=== PATIENT | female | born 1965 | race Caucasian/White ===

== ENCOUNTER → 2019-07-26 | Outpatient (CLI) | payer MEDICAID, SELFPAY ==
[2019-07-26 15:44] LABS: Absolute Lymphocyte Count 2.14 X10^3/uL (0.83-4.51); Basophil# 0.07 X10^3/uL; Basophil% 0.8 % (0-1); Eosinophil# 0.27 X10^3/uL; Hematocrit 45.7 % (37-47); Hemoglobin 14.9 g/dL (12.0-15.0); Lymphocyte # 2.14 X10^3/ul (4.0); Lymphocyte % 23.6 % (19-41); Mean Corp Hgb Conc 32.6 g/dL (32-36); Mean Corpuscular Hgb 30.5 pg (27.0-32.0); Mean Corpuscular Volume 93.6 fL (81-99); Mean Platelet Vol. 12.5 fl (6.2-12.0); Monocyte# 0.59 X10^3/uL; Monocyte% 6.5 % (0-10); NRBC Flagged by Analyzer 0 % (0-5); Neutrophil # 5.97 X10^3/uL (2.7-7.7); Platelet Count 149 K/mm3 (150-450); RBC Distribution Width CV 12.5 % (11.6-14.6); RBC Distribution Width SD 43.1 fl (35.1-43.9); Red Blood Count 4.88 M/mm3 (4.2-5.4); White Blood Count 9.1 K/mm3 (4.4-11.0)
[2019-07-26 16:12] LABS: AST(SGOT) 21 U/L (15-37); Alanine Aminotransfer ALT/SGPT 22 U/L (13-56); Albumin, Serum 4.2 g/dL (3.2-5.0); Alkaline Phosphatase 74 U/L (45-117); Anion Gap 8 (5-15); BUN 13 mg/dL (7-18); BUN/Creat Ratio 19.6 RATIO (10-20); Bilirubin, Direct 0.13 mg/dL (0.00-0.30); Chloride 107 mmol/L (98-107); Creatinine, Serum 0.66 mg/dL (0.55-1.02); EST Glomerular Filtration Rate 98 mL/min (>60); Est Glom Filt Rate - Afr Amer 119 mL/min (>60); Globulin 3.6 g/dL (2.2-4.2); Glucose 86 mg/dL (74-106); Potassium 3.6 mmol/L (3.5-5.1); Protein, Total 7.8 g/dL (6.4-8.2); Sodium Level 141 mmol/L (136-145)
[2019-07-28 20:07] LABS: QNTFERON TB Mitogen Value > 10.00 IU/mL (.); QNTFERON TB Nil Value 0.03 IU/mL (.); QNTFERON TB1+ Ag Value 0.05 IU/mL (.); QNTFERON TB2+ Ag Value 0.07 IU/mL (.)
[2019-07-29 11:28] LABS: QNTIFERON TB Positive Criteria Negative (Negative)
== END | disposition home or self-care (01) ==
LOC: MTLAB 12:02
PROVIDERS: Referring Provider Physician Assistant; Visit Provider Physician Assistant
DX: L40.0 Psoriasis vulgaris (principal); Z79.899 Other long term (current) drug therapy
CPT/HCPCS: 36415; 80048; 80076; 85025; 86480

== ENCOUNTER → 2021-11-22 | Outpatient (CLI) | payer MEDICAID, SELFPAY ==
[2021-11-22 09:12] LABS: Mucous, Urine 0 SEEN /hpf (<or=2+); Red Blood Cells-Urine 0 SEEN /hpf (0-5)
[2021-11-22 10:10] LABS: Absolute Lymphocyte Count 1.92 X10^3/uL (0.83-4.51); Absolute Neutrophil Count 4.8 X10^3/uL (2.0-7.7); Basophil# 0.12 X10^3/uL; Basophil% 1.6 % (0-1); Eosinophil# 0.27 X10^3/uL; Eosinophils% 3.5 % (0-5); Hematocrit 50.7 % (37-47); Hemoglobin 16.8 g/dL (12.0-15.0); Lymphocyte # 1.92 X10^3/ul (0.83-4.51); Mean Corp Hgb Conc 33.1 g/dL (32-36); Mean Corpuscular Hgb 31.5 pg (27.0-32.0); Mean Corpuscular Volume 94.9 fL (81-99); Mean Platelet Vol. 11.2 fl (6.2-12.0); Monocyte# 0.55 X10^3/uL; Monocyte% 7.2 % (0-10); NRBC Flagged by Analyzer 0 % (0-5); Neutrophil % 62.6 % (47-70); Platelet Count 230 K/mm3 (150-450); RBC Distribution Width CV 12.9 % (11.6-14.6); RBC Distribution Width SD 44.9 fl (35.1-43.9); Red Blood Count 5.34 M/mm3 (4.2-5.4); White Blood Count 7.7 K/mm3 (4.4-11.0)
[2021-11-22 10:15] LABS: Color, Urine Yellow (Yellow); Glucose, Dipstick Normal (Normal); Ketone-Dipstick 5 mg/dl (Negative); Leukocyte Esterase-Dipstick 500 /ul (Negative); Nitrite-Dipstick Negative (Negative); Occult Blood-Urine Negative /ul (Negative); Protein-Dipstick Negative (Negative); Specific Gravity, Urine 1.025 (1.002-1.030); Urine Bilirubin Dipstick Negative (Negative); Urine Clarity Clear (Clear); Urine Urobilinogen Normal (Normal)
[2021-11-22 10:32] LABS: White Blood Cells 10-25 SEEN /hpf (0-5)
[2021-11-22 10:33] LABS: Bacteria 1+ /hpf (None Seen); Squamous Epithelial Cells - UA 0-5 SEEN /hpf (5-10)
[2021-11-22 10:42] LABS: AST(SGOT) 21 U/L (15-37); Alanine Aminotransfer ALT/SGPT 21 U/L (13-56); Albumin, Serum 4.1 g/dL (3.2-5.0); Alkaline Phosphatase 84 U/L (45-117); Anion Gap 4 (5-15); BUN 11 mg/dL (7-18); Calcium,Total 9.5 mg/dL (8.5-10.1); Chloride 108 mmol/L (98-107); Creatinine, Serum 0.84 mg/dL (0.55-1.02); EST Glomerular Filtration Rate 73 mL/min (>60); Est Glom Filt Rate - Afr Amer 89 mL/min (>60); Globulin 4.1 g/dL (2.2-4.2); Glucose 95 mg/dL (74-106); Potassium 4.1 mmol/L (3.5-5.1); Protein, Total 8.2 g/dL (6.4-8.2); Sodium Level 136 mmol/L (136-145)
[2021-11-22 11:20] LABS: Hepatitis B Surface Antibody Non-Reactive; Hepatitis B Surface Antigen Non-Reactive (Nonreactive); Hepatitis C Antibody Non-Reactive (Nonreactive)
[2021-11-23 10:07] LABS: Ferritin 197 ng/mL (8-252); Iron 88 ug/dL (50-170); Iron Binding Capacity,Total 375 ug/dL (250-450); PERCENT IRON SATURATION 23.5 % (15.0-55.0)
[2021-11-24 08:23] LABS: Transferrin 287 mg/dL (192-364)
== END | disposition home or self-care (01) ==
LOC: MFPLAB 09:09
PROVIDERS: PCP Family Medicine; Referring Provider Family Medicine; Visit Provider Family Medicine
DX: N39.0 Urinary tract infection, site not specified (principal); D75.1 Secondary polycythemia
CPT/HCPCS: 36415; 80053; 81001; 82728; 83540; 83550; 84466; 85025; 86706; 86803; 87086; 87340

== ENCOUNTER → 2021-12-27 | Outpatient (CLI) | payer MEDICAID, SELFPAY ==
[2021-12-27 17:46] LABS: Hematocrit 49.2 % (37-47); Hemoglobin 16.3 g/dL (12.0-15.0); Mean Corp Hgb Conc 33.1 g/dL (32-36); Mean Corpuscular Hgb 31.3 pg (27.0-32.0); Mean Corpuscular Volume 94.6 fL (81-99); Mean Platelet Vol. 11.8 fl (6.2-12.0); Platelet Count 221 K/mm3 (150-450); RBC Distribution Width SD 45.7 fl (35.1-43.9); White Blood Count 9.2 K/mm3 (4.4-11.0)
[2021-12-27 17:55] LABS: ALB/GLOB Ratio 0.9 RATIO (0.9-2.4); AST(SGOT) 19 U/L (15-37); Alanine Aminotransfer ALT/SGPT 27 U/L (13-56); Albumin, Serum 3.8 g/dL (3.2-5.0); Alkaline Phosphatase 89 U/L (45-117); Anion Gap 7 (5-15); BUN 12 mg/dL (7-18); BUN/Creat Ratio 14.5 RATIO (10-20); Chloride 109 mmol/L (98-107); Creatinine, Serum 0.83 mg/dL (0.55-1.02); EST Glomerular Filtration Rate 75 mL/min (>60); Est Glom Filt Rate - Afr Amer 91 mL/min (>60); Globulin 4.1 g/dL (2.2-4.2); Glucose 83 mg/dL (74-106); Protein, Total 7.9 g/dL (6.4-8.2); Sodium Level 140 mmol/L (136-145)
[2021-12-27 18:36] LABS: HIV - WCH Non-Reactive (Nonreactive); Hepatitis B Surface Antigen Non-Reactive (Nonreactive); Hepatitis C Antibody Non-Reactive (Nonreactive)
[2022-01-01 19:07] LABS: QNTFERON TB Mitogen Value > 10.00 IU/mL (.); QNTFERON TB Nil Value 0 IU/mL (.); QNTFERON TB1+ Ag Value 0.04 IU/mL (.); QNTFERON TB2+ Ag Value 0.03 IU/mL (.)
[2022-01-02 08:06] LABS: Hepatitis B Core Ab Total Negative (Negative); QNTIFERON TB Positive Criteria Negative (Negative)
== END | disposition home or self-care (01) ==
PROVIDERS: PCP Family Medicine; Referring Provider Family Medicine
DX: Z79.899 Other long term (current) drug therapy (principal)
CPT/HCPCS: 36415; 80053; 85027; 86480; 86703; 86704; 86803; 87340

== ENCOUNTER → 2022-01-05 | Outpatient (CLI) | payer MEDICAID, SELFPAY ==
--- NOTE | 2022-01-05 08:57 | CT_ITS ---
STUDY: LOW DOSE CT LUNG CANCER SCREENING REASON FOR EXAM: Female, 56 years old. 1 pack per day smoker x44 years RADIATION DOSAGE (If Supplied By Facility): CTDIvol = ( 2.01 ) mGy, DLP = ( 67.71 ) mGycm TECHNIQUE: No contrast was administered. Low dose technique was utilized (average mAS-38 and kVp 120). 1.25 mm axial source images with a slice interval of 1.25-mm were reconstructed in lung windows. 2.5 mm axial source images with a slice interval of 2.5-mm were reconstructed in lung windows. 5.0 mm axial source images with a slice interval of 5.0-mm were reconstructed in soft tissue windows. COMPARISON: None. FINDINGS: Lung windows show the lungs to be normally expanded. No organized infiltrate. No suspicious noncalcified mass or nodule. No groundglass opacifications or small airways inflammation. There is evidence of pericardial thickening consistent with chronic bronchitis. Soft tissue windows show normal-appearing thyroid gland. No suspicious axillary, mediastinal, or perihilar adenopathy. No thoracic aortic aneurysm. There are calcified coronary vessels. Bony structures show degenerative change. Limited cuts through the upper abdomen do not show a suspicious abnormality. CT/Low Dose CT Lung Screening IMPRESSION: Lung-RADS category 2 - Continue annual screening with LDCT in 12 months. IMPORTANT NOTES FOR USE: ACR Lung-RADS Version 1.1 Assessment Categories Release Date: 2018 Category: Coded 0-4 bases on nodule(s) with highest degree of suspicion. Negative screen is defined as categories 1 and 2; a positive screen is defined as categories 3 and 4. Category 3 and 4A nodules that are unchanged on interval CT should be coded as category 2, and individuals returned to screening in 12 months. Category 4X: Category 3 or 4 nodules with additional imaging findings that increase the suspicion of lung cancer, such as spiculation, GGN that doubles in size in 1 year, enlarged lymph notes, etc. Category Modifiers: S (significant finding unrelated to lung cancer) Electronically Signed: Marck Marr MD at 9:39 EDT ,
== END | disposition home or self-care (01) ==
LOC: CT 08:54
PROVIDERS: PCP Family Medicine; Referring Provider Family Medicine; Visit Provider Family Medicine
DX: F17.210 Nicotine dependence, cigarettes, uncomplicated (principal)
CPT/HCPCS: 71271

== ENCOUNTER → 2023-01-17 | Outpatient (CLI) | payer MEDICAID, SELFPAY ==
[2023-01-17 10:39] LABS: Bacteria 0 SEEN /hpf (None Seen); Mucous, Urine 0 SEEN /hpf (<or=2+); Red Blood Cells-Urine 0 SEEN /hpf (0-5); White Blood Cells 0 SEEN /hpf (0-5)
[2023-01-17 12:21] LABS: Absolute Lymphocyte Count 2.59 X10^3/uL (0.83-4.51); Absolute Neutrophil Count 4.2 X10^3/uL (2.0-7.7); Basophil# 0.11 X10^3/uL; Basophil% 1.4 % (0-1); Eosinophil# 0.26 X10^3/uL; Eosinophils% 3.4 % (0-5); Hematocrit 47.9 % (37-47); Hemoglobin 15.8 g/dL (12.0-15.0); Lymphocyte # 2.59 X10^3/ul (0.83-4.51); Lymphocyte % 33.7 % (19-41); Mean Corpuscular Volume 93.9 fL (81-99); Mean Platelet Vol. 10.8 fl (6.2-12.0); Monocyte# 0.51 X10^3/uL; Monocyte% 6.6 % (0-10); NRBC Flagged by Analyzer 0 % (0-5); Neutrophil # 4.19 X10^3/uL (2.7-7.7); Neutrophil % 54.5 % (47-70); Platelet Count 252 K/mm3 (150-450); RBC Distribution Width CV 12.5 % (11.6-14.6); RBC Distribution Width SD 43.5 fl (35.1-43.9); White Blood Count 7.7 K/mm3 (4.4-11.0)
[2023-01-17 12:24] LABS: Color, Urine Yellow (Yellow); Glucose, Dipstick Normal (Normal); Ketone-Dipstick 5 mg/dl (Negative); Leukocyte Esterase-Dipstick Negative /ul (Negative); Nitrite-Dipstick Negative (Negative); Occult Blood-Urine 10 /ul (Negative); Protein-Dipstick Negative (Negative); Urine Bilirubin Dipstick Negative (Negative); Urine Clarity Clear (Clear); Urine Urobilinogen Normal (Normal)
[2023-01-17 12:41] LABS: Squamous Epithelial Cells - UA 0-5 SEEN /hpf (5-10)
[2023-01-17 12:53] LABS: AST(SGOT) 15 U/L (15-37); Alanine Aminotransfer ALT/SGPT 22 U/L (13-56); Albumin, Serum 3.9 g/dL (3.2-5.0); Alkaline Phosphatase 89 U/L (45-117); Anion Gap 5 (5-15); BUN 9 mg/dL (7-18); BUN/Creat Ratio 12.4 RATIO (10-20); Calcium,Total 9.1 mg/dL (8.5-10.1); Chloride 112 mmol/L (98-107); Cholesterol 268 mg/dL (200); Creatinine, Serum 0.72 mg/dL (0.55-1.02); EST Glomerular Filtration Rate 87 mL/min (>60); Est Glom Filt Rate - Afr Amer 106 mL/min (>60); Glucose 87 mg/dL (74-106); High Density Lipoprotein 77 mg/dL; Potassium 4.1 mmol/L (3.5-5.1); Protein, Total 7.9 g/dL (6.4-8.2); Sodium Level 140 mmol/L (136-145); Thyroid Stim Hormone (TSH) 1.11 uIU/mL (0.358-3.74); Triglycerides 127 mg/dL; Very Low Density Lipoprotein 25 mg/dL (5-40)
[2023-01-22 09:52] LABS: Ferritin 271 ng/mL (8-252); Iron 127 ug/dL (50-170); Iron Binding Capacity,Total 349 ug/dL (250-450); PERCENT IRON SATURATION 36.4 % (15.0-55.0)
[2023-01-23 04:07] LABS: Transferrin 270 mg/dL (192-364)
== END | disposition home or self-care (01) ==
PROVIDERS: PCP Family Medicine; Visit Provider Family Medicine
DX: Z00.00 Encounter for general adult medical examination without abnormal findings (principal); D75.1 Secondary polycythemia; F17.200 Nicotine dependence, unspecified, uncomplicated
CPT/HCPCS: 36415; 80053; 80061; 81001; 82728; 83540; 83550; 84443; 84466; 85025

== ENCOUNTER → 2023-02-27 | Outpatient (CLI) | payer MEDICAID, SELFPAY ==
--- NOTE | 2023-02-27 17:48 | CT_ITS ---
STUDY: LOW DOSE CT LUNG CANCER SCREENING REASON FOR EXAM: Female, 58 years old. One pack per day smoker x45 year RADIATION DOSAGE (If Supplied By Facility): CTDIvol = ( 2.01 ) mGy, DLP = ( 69.97 ) mGycm TECHNIQUE: No contrast was administered. Low dose technique was utilized (average mAS-38 and kVp 120). 1.25 mm axial source images with a slice interval of 1.25-mm were reconstructed in lung windows. 2.5 mm axial source images with a slice interval of 2.5-mm were reconstructed in lung windows. 5.0 mm axial source images with a slice interval of 5.0-mm were reconstructed in soft tissue windows. COMPARISON: 01/05/2022 FINDINGS: Lung windows show the lungs to be normally expanded. Chronic interstitial changes noted in both lung house without organized infiltrate, effusion, or suspicious noncalcified mass or nodule. There is evidence of chronic bronchitis. Soft tissue windows show a normal-appearing thyroid gland. No suspicious adenopathy. Thoracic aorta tapers normally. There are calcified coronary vessels Bony structures show degenerative change. Limited cuts through the upper abdomen do not show a suspicious abnormality CT/Low Dose CT Lung Screening IMPRESSION: Lung-RADS category 2 - Continue annual screening with LDCT in 12 months. IMPORTANT NOTES FOR USE: ACR Lung-RADS Version 1.1 Assessment Categories Release Date: 2018 Category: Coded 0-4 bases on nodule(s) with highest degree of suspicion. Negative screen is defined as categories 1 and 2; a positive screen is defined as categories 3 and 4. Category 3 and 4A nodules that are unchanged on interval CT should be coded as category 2, and individuals returned to screening in 12 months. Category 4X: Category 3 or 4 nodules with additional imaging findings that increase the suspicion of lung cancer, such as spiculation, GGN that doubles in size in 1 year, enlarged lymph notes, etc. Category Modifiers: S (significant finding unrelated to lung cancer) Electronically Signed: Marck Marr MD at 18:38 EDT Reading Location ID and State: [facility] / [place] , Service support ,
== END | disposition home or self-care (01) ==
LOC: CT 17:45
PROVIDERS: PCP Family Medicine; Referring Provider Family Medicine; Visit Provider Family Medicine
DX: F17.200 Nicotine dependence, unspecified, uncomplicated (principal)
CPT/HCPCS: 71271

== ENCOUNTER → 2023-05-14 | Outpatient (CLI) | payer MEDICAID, SELFPAY ==
[2023-05-14 16:01] LABS: Cholesterol 216 mg/dL (200); Ferritin 219 ng/mL (8-252); High Density Lipoprotein 61 mg/dL; Iron 127 ug/dL (50-170); Iron Binding Capacity,Total 355 ug/dL (250-450); Triglycerides 238 mg/dL; Very Low Density Lipoprotein 48 mg/dL (5-40)
[2023-05-16 04:06] LABS: Transferrin 266 mg/dL (192-364)
== END | disposition home or self-care (01) ==
LOC: MFPLAB 11:59
PROVIDERS: PCP Family Medicine; Visit Provider Family Medicine
DX: D75.1 Secondary polycythemia (principal)
CPT/HCPCS: 36415; 80061; 82728; 83540; 83550; 84466

== ENCOUNTER → 2023-12-09 | Outpatient (CLI) | payer MEDICAID, SELFPAY ==
[2023-12-11 21:07] LABS: QNTFERON TB Mitogen Value > 10.00 IU/mL (.); QNTFERON TB Nil Value 0 IU/mL (.); QNTFERON TB1+ Ag Value 0.05 IU/mL (.); QNTFERON TB2+ Ag Value 0.03 IU/mL (.); QNTIFERON TB Positive Criteria Negative (Negative)
== END | disposition home or self-care (01) ==
LOC: MFPLAB 11:12
PROVIDERS: PCP Family Medicine
DX: Z51.81 Encounter for therapeutic drug level monitoring (principal); Z79.899 Other long term (current) drug therapy
CPT/HCPCS: 36415; 86480

== ENCOUNTER → 2024-02-13 | Outpatient (CLI) | payer MEDICAID, SELFPAY ==
[2024-02-13 11:03] LABS: Red Blood Cells-Urine 0 SEEN /hpf (0-5); White Blood Cells 0 SEEN /hpf (0-5)
[2024-02-13 15:22] LABS: Absolute Lymphocyte Count 2.15 X10^3/uL (0.83-4.51); Absolute Neutrophil Count 3.6 X10^3/uL (2.0-7.7); Basophil# 0.12 X10^3/uL; Basophil% 1.8 % (0-1); Eosinophil# 0.24 X10^3/uL; Eosinophils% 3.6 % (0-5); Hematocrit 49.6 % (37-47); Lymphocyte # 2.15 X10^3/ul (0.83-4.51); Lymphocyte % 32.7 % (19-41); Mean Corp Hgb Conc 32.3 g/dL (32-36); Mean Corpuscular Hgb 30.8 pg (27.0-32.0); Mean Corpuscular Volume 95.6 fL (81-99); Mean Platelet Vol. 12.6 fl (6.2-12.0); Monocyte# 0.46 X10^3/uL; NRBC Flagged by Analyzer 0 % (0-5); Neutrophil # 3.58 X10^3/uL (2.7-7.7); Neutrophil % 54.4 % (47-70); Platelet Count 188 K/mm3 (150-450); RBC Distribution Width SD 46.2 fl (35.1-43.9); Red Blood Count 5.19 M/mm3 (4.2-5.4); White Blood Count 6.6 K/mm3 (4.4-11.0)
[2024-02-13 15:39] LABS: Color, Urine Yellow (Yellow); Glucose, Dipstick Normal (Normal); Ketone-Dipstick Negative (Negative); Leukocyte Esterase-Dipstick Negative /ul (Negative); Nitrite-Dipstick Negative (Negative); Occult Blood-Urine 10 /ul (Negative); Protein-Dipstick Negative (Negative); Specific Gravity, Urine 1.025 (1.002-1.030); Urine Bilirubin Dipstick Negative (Negative); Urine Clarity Clear (Clear); Urine Urobilinogen Normal (Normal)
[2024-02-13 15:57] LABS: Bacteria 2+ /hpf (None Seen); Mucous, Urine 1+ /hpf (<or=2+); Squamous Epithelial Cells - UA 0-5 SEEN /hpf (5-10)
[2024-02-13 15:59] LABS: AST(SGOT) 21 U/L (15-37); Alanine Aminotransfer ALT/SGPT 18 U/L (13-56); Albumin, Serum 3.8 g/dL (3.2-5.0); Alkaline Phosphatase 74 U/L (45-117); Anion Gap 6 (5-15); BUN 11 mg/dL (7-18); BUN/Creat Ratio 14.3 RATIO (10-20); Calcium,Total 9.4 mg/dL (8.5-10.1); Chloride 111 mmol/L (98-107); Cholesterol 274 mg/dL (200); Creatinine, Serum 0.77 mg/dL (0.55-1.02); EST Glomerular Filtration Rate 81 mL/min (>60); Est Glom Filt Rate - Afr Amer 98 mL/min (>60); Globulin 3.9 g/dL (2.2-4.2); Glucose 92 mg/dL (74-106); High Density Lipoprotein 75 mg/dL; Potassium 4.2 mmol/L (3.5-5.1); Protein, Total 7.7 g/dL (6.4-8.2); Sodium Level 138 mmol/L (136-145); Triglycerides 145 mg/dL; Very Low Density Lipoprotein 29 mg/dL (5-40)
== END | disposition home or self-care (01) ==
LOC: MFPLAB 11:02
PROVIDERS: PCP Family Medicine; Visit Provider Family Medicine
DX: Z00.00 Encounter for general adult medical examination without abnormal findings (principal)
CPT/HCPCS: 36415; 80053; 80061; 81001; 85025

== ENCOUNTER → 2024-03-04 | Outpatient (CLI) | payer MEDICAID, SELFPAY ==
--- NOTE | 2024-03-04 18:43 | CT_ITS ---
STUDY: LOW DOSE CT LUNG CANCER SCREENING REASON FOR EXAM: Female, 59 years old. smoker Other, SMOKER 40 + YEARS,SMOKES LESS THAN 1 PACK PER DAY RADIATION DOSAGE (If Supplied By Facility): CTDIvol = ( 2.39 ) mGy, DLP = ( 77.73 ) mGycm TECHNIQUE: No contrast was administered. Low dose technique was utilized (average mAS-38 and kVp 120). 1.25 mm axial source images with a slice interval of 1.25-mm were reconstructed in lung windows. 2.5 mm axial source images with a slice interval of 2.5-mm were reconstructed in lung windows. 5.0 mm axial source images with a slice interval of 5.0-mm were reconstructed in soft tissue windows. Nodule measured using lung windows on PACS and/or independent workstation with automated measurement of minimum and maximum diameter. Nodule measurement reported as average diameter rounded to the nearest whole number. Growth is defined as an increase ins size of greater than 1.5 mm. COMPARISON: CT lung cancer screening exam dated February 27, 2023 FINDINGS: Total lung nodules (excluding granulomas): None. No visualized masses or nodules or spiculated lesions. Emphysema: Mild to moderate with hyperinflation of both lungs Endobronchial lesion: None Aorta: No aneurysmal dilatation Coronary arteries: Moderate atherosclerotic calcifications of the coronary arteries are present Heart: Normal heart size There are interstitial fibrotic changes of the lungs. No visualized pneumonic consolidation or active pulmonary edema. There is no demonstrated pleural abnormality. Normal heart size and pericardium. Normal mediastinum. Normal hilar regions. Normal unenhanced pulmonary arteries. There is atherosclerotic calcification of the aortic arch with tortuosity and elongation of the aortic arch and descending thoracic aorta. There are multi-level degenerative changes of the thoracic spine. CT/Low Dose CT Lung Screening IMPRESSION: 1. COPD/emphysema 2. Interstitial fibrosis 3. Lung-RADS category 2 - Continue annual screening with LDCT in 12 months. IMPORTANT NOTES FOR USE: ACR Lung-RADS Version 1.0 Assessment Categories Release Date: 2021 Classification system Category 0 (Incomplete)- prior CT studies were performed but are not available, lungs incompletely imaged, findings suggest inflammation or infection Category 1 (negative, <1% chance of malignancy) (no lung nodules/lung nodule(s) with specific findings favoring benign nodule(s)) Category 2 (benign appearance or behavior, <1% chance of malignancy) juxtapleural nodule <10mm mean diameter at baseline OR new and smooth, solid, oval, lentiform, or triangular Category 3 nodules that are stable or decreased at 6 months Category 3 (probably benign, 1-2% chance of malignancy) solid nodule(s)(between 6 and 8 mm at baseline; new nodule between 4 mm and 6 mm) Category 4A lesion, stable or decreased in size at 3-month follow-up (excluding airway nodules) Category 4A (suspicious, 5-15% chance of malignancy) (version 1.1 change previously suspicious) solid nodule(s) (?8 mm to <15 mm at baseline or growing nodule(s) <8 mm) Category 4B (very suspicious, >15% chance of malignancy) stable or growing airway nodule, segmental or more proximal (solid nodule(s) ? 15 mm at baseline or new or growing, and ?8 mm) Category 4X (very suspicious, >15% chance of malignancy) category 3 or 4 nodules with additional features or imaging findings that increase the suspicion of malignancy Modified categories [X]S (e.g. 3S ) if there is a clinically significant or potentially significant non-lung cancer finding Electronically Signed: Kwadwo Boone MD at 9:09 EDT Reading Location ID and State: [facility] / [place] , Service support ,
== END | disposition home or self-care (01) ==
PROVIDERS: PCP Family Medicine; Referring Provider Family Medicine; Visit Provider Family Medicine
DX: F17.200 Nicotine dependence, unspecified, uncomplicated (principal)
CPT/HCPCS: 71271

== ENCOUNTER → 2024-06-22 | Outpatient (CLI) | payer MEDICAID, SELFPAY ==
[2024-06-22 15:24] LABS: Absolute Lymphocyte Count 1.81 X10^3/uL (0.83-4.51); Absolute Neutrophil Count 4.4 X10^3/uL (2.0-7.7); Basophil# 0.11 X10^3/uL; Basophil% 1.5 % (0-1); Eosinophils% 2.8 % (0-5); Hematocrit 46.2 % (37-47); Hemoglobin 15.8 g/dL (12.0-15.0); Lymphocyte # 1.81 X10^3/ul (0.83-4.51); Lymphocyte % 25.3 % (19-41); Mean Corp Hgb Conc 34.2 g/dL (32-36); Mean Corpuscular Hgb 31.8 pg (27.0-32.0); Mean Platelet Vol. 11.3 fl (6.2-12.0); Monocyte# 0.58 X10^3/uL; Monocyte% 8.1 % (0-10); NRBC Flagged by Analyzer 0 % (0-5); Neutrophil # 4.43 X10^3/uL (2.7-7.7); Neutrophil % 61.9 % (47-70); Platelet Count 206 K/mm3 (150-450); RBC Distribution Width CV 12.9 % (11.6-14.6); RBC Distribution Width SD 43.9 fl (35.1-43.9); Red Blood Count 4.97 M/mm3 (4.2-5.4); White Blood Count 7.2 K/mm3 (4.4-11.0)
[2024-06-22 16:42] LABS: AST(SGOT) 19 U/L (15-37); Alanine Aminotransfer ALT/SGPT 25 U/L (13-56); Alkaline Phosphatase 84 U/L (45-117); Anion Gap 6 (5-15); BUN 10 mg/dL (7-18); BUN/Creat Ratio 13.4 RATIO (10-20); Calcium,Total 9.5 mg/dL (8.5-10.1); Chloride 109 mmol/L (98-107); Cholesterol 235 mg/dL (200); Creatinine, Serum 0.75 mg/dL (0.55-1.02); EST Glomerular Filtration Rate 84 mL/min (>60); Est Glom Filt Rate - Afr Amer 102 mL/min (>60); Glucose 83 mg/dL (74-106); High Density Lipoprotein 78 mg/dL; Sodium Level 139 mmol/L (136-145); Triglycerides 196 mg/dL; Very Low Density Lipoprotein 39 mg/dL (5-40)
== END | disposition home or self-care (01) ==
LOC: MFPLAB 11:31
PROVIDERS: PCP Family Medicine; Referring Provider Family Medicine; Visit Provider Family Medicine
DX: Z00.00 Encounter for general adult medical examination without abnormal findings (principal)
CPT/HCPCS: 36415; 80053; 80061; 85025

== ENCOUNTER 2024-07-20 06:26 | Inpatient (IN) | payer MEDICAID, SELFPAY ==
[2024-07-20] VITALS (16 sets, daily range): BP systolic 114–141; BP diastolic 50–97; PULSE 54–88; RESP 14–20; TEMP 35.8–36.8; O2SAT 97–100; BMI 25.0
--- NOTE | 2024-07-20 06:41 | CT_ITS ---
PROCEDURE: CTA ABD W/RUNOFF W/WO CONTRAST REASON FOR EXAM: ARTERIAL OCCLUSION RIGHT LOWER LEG TECHNIQUE: CTA imaging of the abdomen, pelvis, and lower extremities with intravenous contrast. 3D reconstructions. IV CONTRAST: COMPARISON: None. FINDINGS: Nonvascular: Streaky changes at the right lung base. There is no pleural pericardial effusion. There is no free air within the abdomen and pelvis. Tiny hypodense structures seen within the right lobe of the liver, incompletely characterized. This measures up to 5 mm in best seen on image 37/377. The liver is otherwise unremarkable. The spleen, adrenals, pancreas are unremarkable. The bilateral kidneys are unremarkable. The uterus is bulky and heterogeneous in appearance, incompletely characterized hypodense structure seen within the left adnexal region which measures up to 6.5 by 3.4 cm, which may or may not be related to the left ovary. Urinary bladder is within normal limits. There is no bowel obstruction. Vascular: Heterogeneous plaque seen within the abdominal aorta and its branches. There is no aneurysmal dilatation within the abdominal aorta. The origins of the celiac, SMA, bilateral renals, JENNIFER are patent. Right leg: The external iliac artery is patent. A filling defect is noted within the proximal common femoral artery/right proximal femoral artery resulting in complete occlusion. There is reconstitution noted with filling noted within the mid to distal right common femoral artery. The popliteal is patent. There is diminutive flow within infrapopliteal artery. Trickle filling is present within the infrapopliteal arteries on the right side. No flow is seen at the level of the ankle. Left leg: The left external iliac artery is patent. The left common femoral, femoral, popliteal arteries are widely patent. Two-vessel runoff is noted involving the anterior tibial artery and peroneal artery. Diminutive flow is present within the peroneal artery. CT/CTA Abd w/Runoff W/WO Contrast IMPRESSION: Acute occlusive thrombus involving the right common femoral/proximal femoral ar kamilah with reconstitution below. Diminutive flow is noted within the infrapopliteal arteries on the right side. Recommend emerg ent vascular surgery/interventional radiology consultation. Bulky and heterogeneous uterus. 6.5 cm hypodense structure within the left adnexa may be related to a left adne xal cyst. Further evaluation is warranted. Critical findings discussed with Virgil Henderson MD in the emergency room at 8 a.m. . One or more dose reduction techniques were used (e.g., Automated exposure contr ol, adjustment of the mA and/or kV according to patient size, use of iterative reconstruction technique). Red Alert: Acute thrombosis of the right common femoral/proximal femoral artery . The critical information above was relayed directly by me by telephone to Asa Henderson MD on 07/20/2024 at 8:00 am with readback verification. Reading Location: [id number]
[2024-07-20] MEDS: Morphine 4 MG/ML Syringe IV (06:52)
[2024-07-20] MEDS: 0.9% Normal Saline (1000mL) 1,000 ML 999 ML IV (06:52)
[2024-07-20] MEDS: Ondansetron 4 MG/2 ML Vial IV ×2 (06:52→21:16)
--- NOTE | 2024-07-20 07:01 | EKG12_ITS ---
Test Reason : Blood Pressure : */* mmHG Vent. Rate : 77 BPM Atrial Rate : 77 BPM P-R Int : 180 ms QRS Dur : 84 ms QT Int : 408 ms P-R-T Axes : 69 42 44 degrees QTcB Int : 461 ms Normal sinus rhythm Normal ECG Confirmed by RAYMUNDO MARROQUIN, JACK ([id number]), loan expeditor DEBORAH LOPEZ ([id number]) on 07/26/2024 11:13:32 AM Referred By: Confirmed By: JACK FONSECA MD
[2024-07-20 07:05] LABS: Absolute Neutrophil Count 5.5 X10^3/uL (2.0-7.7); Basophil# 0.12 X10^3/uL; Basophil% 1.4 % (0-1); Eosinophil# 0.22 X10^3/uL; Eosinophils% 2.5 % (0-5); Hematocrit 45.7 % (37-47); Hemoglobin 15.7 g/dL (12.0-15.0); Lymphocyte % 23.1 % (19-41); Mean Corp Hgb Conc 34.4 g/dL (32-36); Mean Corpuscular Hgb 31.7 pg (27.0-32.0); Mean Corpuscular Volume 92.1 fL (81-99); Mean Platelet Vol. 9.7 fl (6.2-12.0); Monocyte# 0.78 X10^3/uL; NRBC Flagged by Analyzer 0 % (0-5); Neutrophil # 5.51 X10^3/uL (2.7-7.7); Neutrophil % 63.7 % (47-70); Platelet Count 178 K/mm3 (150-450); RBC Distribution Width CV 12.6 % (11.6-14.6); RBC Distribution Width SD 42.5 fl (35.1-43.9); Red Blood Count 4.96 M/mm3 (4.2-5.4); White Blood Count 8.7 K/mm3 (4.4-11.0)
--- NOTE | 2024-07-20 07:14 | EX.ED.DYSGE1 ---
HPI History of Present Illness Chief Complaint: Numb/Ting Informant: patient and spouse/S.O. Narrative Narrative: Patient is a 59-year-old female with past medical history of hyperlipidemia and smoking. She states over the past 2 to 3 weeks she has noticed pain in her right lower leg when she is up ambulating and then states it seems to resolve at rest. She states that she went to bed last night and then awoke around 5 this morning with pain numbness and tingling of her right lower leg. She states she took [id number] medication and tried to walk on it and with this there was no improvement of her pain or paresthesias and therefore she comes in for evaluation. [facility] Medical History Hyperlipemia Smoker Home Medications ?Medication ?Instructions ?Recorded ?Last Taken ?Type rosuvastatin 10 mg tablet 10 mg PO DAILY 07/20/24 Unknown History Allergy/AdvReac Type Severity Reaction Status Date / Time No Known Allergies Allergy Verified 07/20/24 06:32 Social History Smoking Status: Current every day smoker tobacco type: cigarettes ROS ROS ED Constitutional Constitutional ED: Denies chills or fever(s) ENT ENT ED: Denies sore throat Cardiovascular Cardiovascular: Denies chest pain Respiratory/Chest Respiratory/Chest: Denies cough or dyspnea Gastrointestinal Gastrointestinal: Denies abdominal pain, diarrhea, nausea or vomiting Genitourinary Genitourinary ED: Denies dysuria Musculoskeletal Musculoskeletal: Reports other Details: Positive right lower leg pain Integumentary Denies rash Neurologic Neurologic: Reports paresthesias; Denies headache(s) Hematologic/Lymphatic Hematologic/Lymphatic: Denies easy bleeding or easy bruising EXAM Physical Exam Const Vital Signs: 07/20/24 06:27 Temperature 97.4 F L Temperature Source Oral Pulse Rate 88 Respiratory Rate 16 Blood Pressure 114/97 H Blood Pressure Mean 102 Pulse Ox 99 Oxygen Delivery Method Room Air Positive well nourished and well developed General Appearance ED: well developed HEENT HEENT Narrative: Normocephalic atraumatic Eyes PERRL and EOMs intact bilaterally General Eye ED: Negative for scleral icterus Neck supple Resp normal respiratory effort Resp Narrative: Breath sounds are diminished throughout with faint wheezing rhonchi in the bilateral lower lobes consistent with history of smoking but no signs of respiratory distress Cardio regular rate and regular rhythm Rate: other Other Details: Regular rate and rhythm without murmurs rubs or gallops Radial and carotid pulses are equal and symmetric Extremity Extremity Narrative: Right lower extremity shows changes concerning for acute arterial occlusion. Patient has coolness and pallor from distal third of the mulligan down through the right foot/toes. The skin is mottled and pale. Capillary refill is greater than 3 seconds. There is no obvious dorsalis pedis or posterior tibial pulse palpated. Patient still has full active range of motion. Patient reports paresthesia sensation Neuro oriented x3, CN's II-XII intact bilaterally and No no sensory deficits noted Neuro Narrative: Sensory change to the right lower leg as documented above Sensorium / Orientation: alert Motor Exam: strength 5/5 throughout Psych mental status grossly normal Skin Skin Narrative: Soft tissue changes to the right lower leg as documented above concerning for acute arterial occlusion MDM MDM MDM Narrative Medical decision making narrative: Patient arrived to the ER stable vitals. She reported intermittent symptoms over the past 2 to 3 weeks that occurred with activity and resolved at rest. However this event occurred while sleeping and has not improved over the course of the last hour and 1/2 to 2 hours. The exam is most consistent with acute arterial occlusion. The patient's heart is regular rate and rhythm going against a cardiac dysrhythmia such as A-fib or a flutter causing a thrombosis/embolus. She was started on heparin bolus and drip with concern for acute occlusion in order to prevent potential tissue necrosis and sent for a CTA to document the level of the occlusion. The case was discussed with vascular surgeon Dr. Abbott. He agrees with the initial plan of care and recommends he be reconsulted once the CTA has been performed. Patient has had improvement of her pain and capillary refill with the bolus of heparin. At this time the CTA has been performed but is still waiting reading by radiology as well as reading by the vascular surgeon Dr. Abbott. Therefore the case to be signed out to the day physician Dr. Henderson History & Record Review Discussion w/independent historian: Patient and Significant other Lab Data Attestation: I reviewed the patient's lab results. Labs: Laboratory Results - last 24 hr 07/20/24 06:57 WBC 8.7 RBC 4.96 Hgb 15.7 H Hct 45.7 MCV 92.1 MCH 31.7 MCHC 34.4 RDW Std Deviation 42.5 RDW Coeff of Mesfin 12.6 Plt Count 178 MPV 9.7 Immature Gran % (Auto) 0.300 Neut % (Auto) 63.7 Lymph % (Auto) 23.1 [place]rie % (Auto) 9.0 Eos % (Auto) 2.5 Baso % (Auto) 1.4 H Absolute Neuts (auto) 5.5 Absolute Lymphs (auto) 2.00 Nucleated RBC % 0 Lactic Acid 2.0 Discharge Plan Triage Chief Complaint: Numb/Ting ED Provider: Chapin Brandon Dx/Rx/DC Orders Clinical Impression: Acute occlusion of artery of lower extremity, Hyperlipidemia, Tobacco abuse Prescriptions: No Action rosuvastatin 10 mg tablet 10 mg PO DAILY Primary Care Provider: Rigo Burns Referrals: Rigo Burns MD [Primary Care Provider] - Print Language: Kyrgyz
[2024-07-20] MEDS: Heparin Injection (Vial) 5,000 UNIT/ML VIAL 4000 UNIT IV (07:24)
[2024-07-20] MEDS: HEPARIN/D5w 25,000 UNITS 25,000 UNITS/250 ML IV.SOLN. 9 UNITS CONT INF (07:29)
[2024-07-20 08:04] LABS: Anion Gap 14 (5-15); BUN 13 mg/dL (4-19); BUN/Creat Ratio 16.4 RATIO (10-20); Calcium,Total 9.3 mg/dL (7.6-11.0); Carbon Dioxide 20.4 mmol/L (21.0-32.0); Chloride 104 mmol/L (98-108); Creatinine, Serum 0.78 mg/dL (0.70-1.20); EST Glomerular Filtration Rate 86 (>60); Glucose 94 mg/dL (70-99); Potassium 3.7 mmol/L (3.3-5.1); Sodium Level 138 mmol/L (133-145)
[2024-07-20 08:12] LABS: International Normalized Ratio 0.9; Partial Thromboplast Time 24.1 Seconds (24.1-36.2); Prothrombin Time (Protime)PT. 12.4 SECONDS (11.7-14.9)
--- NOTE | 2024-07-20 08:18 | ECHOD_ITS ---
Reason For Study Reason For Study: Arterial emboli Procedure This was a 2D Doppler, Color Flow transthoracic echocardiogram. Exam done portable in PACU. Left Ventricle Normal LV size. The estimated ejection fraction is 60 %. No evidence for diastolic dysfunction. No regional wall motion abnormalities noted. Right Ventricle Normal RV size. Normal systolic function. Atria The left and right atria are normal. No doppler evidence for ASD. Mitral Valve There is no mitral valve stenosis. No mitral valve insufficiency. Tricuspid Valve There is no tricuspid stenosis. Unable to estimate RV systolic pressure due to inadequate jet, pulmonary artery pressure probably normal. Aortic Valve Trisinus/trileaflet aortic valve. There is no aortic stenosis. Mild (1+) aortic valve insufficiency. Pulmonic Valve There is no pulmonic valvular stenosis. No pulmonic valve insufficiency. Great Vessels Normal sized aortic root. Pericardium/Pleural No pericardial effusion. MMode/2D Measurements & Calculations LVIDd: 4.9 cm IVSd: 0.92 cm Ao root diam: 3.2 cm LVIDs: 2.7 cm LVPWd: 0.96 cm RVDd: 3.1 cm FS: 44.2 % LAV(MOD-bp): 24.1 ml LVAd ap4: 24.9 cm2 LVAd ap2: 24.6 cm2 LAV(MOD-bp) Indexed: 13.5 ml/m2 LVLd ap4: 7.4 cm LVLd ap2: 7.4 cm LAV(MOD-sp2): 24.7 ml EDV(MOD-sp4): 69.4 ml EDV(MOD-sp2): 69.7 ml LAV(MOD-sp4): 23.5 ml EDV(sp4-el): 71.3 ml EDV(sp2-el): 69.4 ml LVAs ap4: 12.9 cm2 LVAs ap2: 15.6 cm2 LVLs ap4: 6.4 cm LVLs ap2: 6.7 cm ESV(MOD-sp4): 21.8 ml ESV(MOD-sp2): 29.7 ml ESV(sp4-el): 22.2 ml ESV(sp2-el): 30.5 ml EF(MOD-sp4): 68.6 % EF(MOD-sp2): 57.4 % EF(sp4-el): 68.8 % SV(MOD-sp4): 47.7 ml SV(MOD-sp2): 40.1 ml SV(sp4-el): 49.1 ml SI(MOD-sp4): 26.6 ml/m2 SI(MOD-sp2): 22.3 ml/m2 LA A4 area: 10.9 cm2 LA dimension(2D): 2.9 cm RA A4 area: 8.5 cm2 TAPSE: 2.0 cm Doppler Measurements & Calculations MV E max ricardo: 60.6 cm/sec Lat Peak E' Ricardo: 11.5 cm/sec Med Peak E' Ricardo: 8.5 cm/sec MV A max ricardo: 81.7 cm/sec E/E' lat: 5.3 E/E' med: 7.1 MV E/A: 0.74 Ao V2 max: 125.5 cm/sec AI max ricardo: 428.8 cm/sec LV V1 max: 95.0 cm/sec Ao max P.3 mmHg AI max P.6 mmHg LV V1 max P.6 mmHg AI dec slope: 118.3 cm/sec2 AI P1/2t: 1062 msec PA V2 max: 82.3 cm/sec ECHO/Echo Complete Interpretation Summary The estimated ejection fraction is 60 %. No evidence for diastolic dysfunction. Mild (1+) aortic valve insufficiency. Ordering Physician: Yadi Galvez Referring Physician: Rigo Burns Performed By: Melina Gomez RDCS
--- NOTE | 2024-07-20 08:20 | PCM.HP.STD ---
HPI - General General Date of Admission: 07/20/24 Date of Service: 07/20/24 Chief Complaint: Right lower extremity pain HPI Narrative RHEA EMANUEL, is a 59 F who presented to [facility] on 07/20/2024 with worsening right lower extremity pain. Patient reported intermittent right lower extremity pain with some numbness/tingling over the past few weeks. This morning around 5 AM she was awoken from sleep with a feeling of numbness in her right foot. When she went to put weight on the foot she had extreme pain, so she came in for further evaluation. In the ED she was found to have right lower extremity changes on exam concerning for acute arterial occlusion including coolness and pallor from the distal third of the mulligan down to the right foot/toes, skin mottled and pale, delayed capillary refill and no obvious dorsalis pedis or posterior tibial pulses. She was started on a heparin drip with some improvement in symptoms. CTA abdomen pelvis with runoff showed an acute occlusive thrombus involving the right common femoral/proximal femoral artery along with diminutive flow within the infrapopliteal arteries on the right side. Case was discussed with Dr. Abbott who plans to take the patient to surgery this afternoon. Hospitalist was then contacted for admission. I saw the patient at bedside in the ED, present. Patient was very pleasant and sitting up comfortably in bed, conversing normally and in no acute distress. She denied any right leg pain or discomfort currently, states that feels much improved from earlier today. Patient is a current smoker, smokes about 1/2 pack/day. Notes that she has been trying to wean down her amount of smoking recently and recently trialed Chantix but had significant nausea with this and stopped it about 2 weeks ago. She also has history of hyperlipidemia and has been on rosuvastatin 10 mg daily for the past 3 months. She is not on any other home medications. Denies any prior history of clots. No other acute concerns at this time. [facility] Medical History Hyperlipemia Smoker Home Medications ?Medication ?Instructions ?Recorded ?Last Taken ?Type rosuvastatin 10 mg tablet 10 mg PO DAILY 07/20/24 Unknown History Allergy/AdvReac Type Severity Reaction Status Date / Time No Known Allergies Allergy Verified 07/20/24 06:32 Surgical History no surgical history Social History Smoking Status: Current every day smoker tobacco type: cigarettes ROS Constitutional Constitutional: Denies chills, fatigue, fever(s) or weakness Eyes Eyes: Denies change in vision Cardiovascular Cardiovascular: Denies chest pain Respiratory/Chest Respiratory/Chest: Denies cough or shortness of breath at rest Gastrointestinal Gastrointestinal: Denies abdominal pain Musculoskeletal Musculoskeletal: Reports other Details: Right leg pain from hip down ; Denies arthralgias or myalgias Neurologic Neurologic: Reports numbness and paresthesias Vital Signs Vital Signs Vital Signs: 07/20/24 06:27 07/20/24 07:27 07/20/24 08:00 Temperature 97.4 F L Temperature Source Oral Pulse Rate 88 82 81 Respiratory Rate 16 17 18 Blood Pressure 114/97 H 141/76 H 135/78 H Blood Pressure Mean 102 97 97 Pulse Ox 99 98 98 Oxygen Delivery Method Room Air Room Air Room Air 07/20/24 08:11 Temperature 98.2 F Temperature Source Pulse Rate 78 Respiratory Rate 19 H Blood Pressure 135/76 H Blood Pressure Mean 95 Pulse Ox 98 Oxygen Delivery Method Weight Weight: 70.5 kg Body Mass Index (BMI) 25.0 Physical Exam Const alert, oriented x3, no apparent distress, average body habitus, healthy appearing and well nourished Constitutional Narrative: Pleasant middle-age female, sitting back comfortably in bed, conversing normally, in no acute distress. General Appearance: cooperative, comfortable, well kempt and well developed HEENT normocephalic, head/scalp atraumatic, hearing grossly normal bilaterally, nasal mucous membranes and turbinates normal and moist oral mucous membranes Eyes PERRL, EOMs intact bilaterally and conjunctivae normal Neck full ROM Chest inspection of chest normal Resp normal respiratory effort, normal air movement, no use of accessory muscles and clear to auscultation bilaterally Cardio regular rate, regular rhythm, no murmurs and peripheral pulses 2+ throughout GI normal to inspection, nondistended, normoactive bowel sounds, soft to palpation, non-tender and non-distended Back/Spine normal ROM Extremity Extremity Narrative: Right foot with mild pallor but leg otherwise with good color and warm to the touch. DP pulse diminished but present. Skin no rashes or lesions noted Neuro moves all extremities and no focal motor deficits Speech: speech normal Motor Exam: strength 5/5 throughout Psych mental status grossly normal Results Lab / Micro Data 07/20/24 06:57 07/20/24 06:57 Labs: Laboratory Results - last 24 hr 07/20/24 06:57: WBC 8.7, RBC 4.96, Hgb 15.7 H, Hct 45.7, MCV 92.1, MCH 31.7, MCHC 34.4, RDW Std Deviation 42.5, RDW Coeff of Mesfin 12.6, Plt Count 178, MPV 9.7, Immature Gran % (Auto) 0.300, Neut % (Auto) 63.7, Lymph % (Auto) 23.1, [place] % (Auto) 9.0, Eos % (Auto) 2.5, Baso % (Auto) 1.4 H, Absolute Neuts (auto) 5.5, Absolute Lymphs (auto) 2.00, Nucleated RBC % 0, PT 12.4, INR 0.9, APTT 24.1, Sodium 138, Potassium 3.7, Chloride 104, Carbon Dioxide 20.4 L, Anion Gap 14, BUN 13, Creatinine 0.78, Estim Creat Clear Calc 70.90, Est GFR (MDRD) Non-Af 86, BUN/Creatinine Ratio 16.4, Glucose 94, Lactic Acid 2.0, Calcium 9.3 Imaging Radiology Impression Abdomen/Pelvis CTA 07/20/24 06:41 IMPRESSION: Acute occlusive thrombus involving the right common femoral/proximal femoral artery with reconstitution below. Diminutive flow is noted within the infrapopliteal arteries on the right side. Recommend emergent vascular surgery/interventional radiology consultation. Bulky and heterogeneous uterus. 6.5 cm hypodense structure within the left adnexa may be related to a left adnexal cyst. Further evaluation is warranted. Critical findings discussed with Virgil Henderson MD in the emergency room at 8 a.m.. One or more dose reduction techniques were used (e.g., Automated exposure control, adjustment of the mA and/or kV according to patient size, use of iterative reconstruction technique). Red Alert: Acute thrombosis of the right common femoral/proximal femoral artery. The critical information above was relayed directly by me by telephone to Asa Henderson MD on 07/20/2024 at 8:00 am with readback verification. Reading Location: [id number] Assessment & Plan Assessment/Plan (1) Acute occlusion of artery of lower extremity: (2) Femoral artery thrombosis, right: PLAN: Plan Patient is a 59-year-old female who presented [facility] ED on 07/20/2024 with acute right lower extremity pain. 1. Right lower extremity acute arterial occlusion ? Admit under inpatient status to PCU. Vascular surgery consulted. CTA abdomen pelvis with runoff showed an acute occlusive thrombus involving the right common femoral/proximal femoral artery along with diminutive flow in the infrapopliteal arteries on the right side. Started on heparin drip in the ED with improvement in pain, skin pallor and pulses. Plan was for urgent intervention with vascular surgery this afternoon, will follow-up on result. 2. Hyperlipidemia ? Most recent lipid panel on 06/22 showed total cholesterol 235, LDL 118, HDL 78. Has been on rosuvastatin 10 mg daily at home. Will increase to rosuvastatin 40 mg daily at this time. 3. Tobacco use disorder ? Currently smoking about half pack of cigarettes per day. Nicotine patch ordered per patient request. Strongly encouraged cessation on discharge. DVT prophylaxis: Not indicated, on heparin drip CODE STATUS: Full code, verified Expected disposition: TBD Total clinical time spent by myself addressing the patient's medical issues, reviewing all the data, and collaborating with patient's care team: 55 minutes. Charges/Coding Visit Charges Inpatient E&M: 54155 Init Hosp L2
--- NOTE | 2024-07-20 08:29 | EX.PCM.CON.S ---
Assessment & Plan Assessment/Plan (1) Acute occlusion of popliteal artery due to thromboembolism: (2) Femoral artery thrombosis, right: PLAN: Plan She had CTA runoff which was reviewed with Dr. Abbott and demonstrated R SFA atherosclerosis/thrombosis with popliteal thromboembolic occlusion. She will require femoral endarterectomy with popliteal embolectomy. This was discussed with patient and her , questions were addressed and she is agreeable to proceed. Plan for admission on heparin drip and to OR this afternoon. Given embolic appearance on CTA will obtain echo to evaluate for possible cardiac source. Recommend initiating ASA 81mg daily and increasing to rosuvastatin 40mg daily. HPI Consult Data Date of Consult: 07/20/24 HPI Narrative HPI Narrative: RHEA EMANUEL, is a 59 F who presents to the [facility] ER with a few hour history of R foot numbness/tingling and pain. When she first arrived around 0630, she had RLE rest pain and reports that she had paresthesias through her R foot which had started around 0500. Per ED report she also had R foot pallor and coolness as well. She was initiated on a heparin drip and later on my exam (around 0800) she reports resolved rest pain, improved but still present paresthesias. Per ED, her R foot also improved somewhat visually; on my exam some mottling, delayed cap refill but no pallor and not cold to touch. On my exam, very faint pedal signal, no PT signal; able to feel touch throughout her foot just with altered sensation by report, motor function intact. No wounds. She reports that for a few weeks preceding she has had short-distance claudication, about 25-50 feet before she would have pain/paresthesias in her R calf/foot; this would resolve with rest. She notes this morning she suddenly developed these symptoms at rest without any clear provocation. She denies any prior knowledge of arterial disease or heart disease. She is not diabetic. She denies any history of arrhythmia such as Afib. She denies any preceding palpitation/racing heart, chest pain, SOB, syncope/presyncope. She does smoke. She is not taking any any antiplatelet therapy at home. She takes rosuvastatin 10mg daily for hyperlipidemia. [facility] Medical History Hyperlipemia Smoker Home Medications ?Medication ?Instructions ?Recorded ?Last Taken ?Type rosuvastatin 10 mg tablet 10 mg PO DAILY 07/20/24 Unknown History Allergy/AdvReac Type Severity Reaction Status Date / Time No Known Allergies Allergy Verified 07/20/24 06:32 Social History Smoking Status: Current every day smoker tobacco type: cigarettes Physical Exam Const alert, oriented x3 and no apparent distress General Appearance: cooperative and comfortable HEENT normocephalic, hearing grossly normal bilaterally, external ears normal and external nose normal Eyes EOMs intact bilaterally General Eye: normal appearance of both eyes Neck General: normal visual inspection Resp normal respiratory effort, normal air movement, no retractions and no use of accessory muscles Effort and Inspection: able to speak in complete sentences; Negative for labored, grunting, stridor or audible wheezes Cardio Rate: regular rate Rhythm: regular rhythm Extremity Extremity Narrative: R PT pulse nonpalpable and no doppler signal; R DP nonpalpable, very faint monophasic/blowing signal R foot with mild cyanotic discoloration, delayed cap refill; slightly cool to touch; no wounds/gangrenous changes R foot sensory intact objectively, motor function intact L foot with palpable pedal pulses Skin no rashes or lesions noted Wounds: Negative for wounds noted Neuro moves all extremities and no focal motor deficits Speech: speech normal Psych mental status grossly normal Appearance: grossly normal Attitude: calm and engaged Speech: normal speech Mood & Affect: euthymic mood Lab / Micro Data 07/20/24 06:57 07/20/24 06:57 Labs: Laboratory Results - last 24 hr 07/20/24 06:57: WBC 8.7, RBC 4.96, Hgb 15.7 H, Hct 45.7, MCV 92.1, MCH 31.7, MCHC 34.4, RDW Std Deviation 42.5, RDW Coeff of Mesfin 12.6, Plt Count 178, MPV 9.7, Immature Gran % (Auto) 0.300, Neut % (Auto) 63.7, Lymph % (Auto) 23.1, [place] % (Auto) 9.0, Eos % (Auto) 2.5, Baso % (Auto) 1.4 H, Absolute Neuts (auto) 5.5, Absolute Lymphs (auto) 2.00, Nucleated RBC % 0, PT 12.4, INR 0.9, APTT 24.1, Sodium 138, Potassium 3.7, Chloride 104, Carbon Dioxide 20.4 L, Anion Gap 14, BUN 13, Creatinine 0.78, Estim Creat Clear Calc 70.90, Est GFR (MDRD) Non-Af 86, BUN/Creatinine Ratio 16.4, Glucose 94, Lactic Acid 2.0, Calcium 9.3 Imaging Radiology Impression Abdomen/Pelvis CTA 07/20/24 06:41 IMPRESSION: Acute occlusive thrombus involving the right common femoral/proximal femoral artery with reconstitution below. Diminutive flow is noted within the infrapopliteal arteries on the right side. Recommend emergent vascular surgery/interventional radiology consultation. Bulky and heterogeneous uterus. 6.5 cm hypodense structure within the left adnexa may be related to a left adnexal cyst. Further evaluation is warranted. Critical findings discussed with Virgil Henderson MD in the emergency room at 8 a.m.. One or more dose reduction techniques were used (e.g., Automated exposure control, adjustment of the mA and/or kV according to patient size, use of iterative reconstruction technique). Red Alert: Acute thrombosis of the right common femoral/proximal femoral artery. The critical information above was relayed directly by me by telephone to Asa Henderson MD on 07/20/2024 at 8:00 am with readback verification. Reading Location: [id number] Charges/Coding Visit Charges Inpatient E&M: 23021 Init Hosp L2
--- NOTE | 2024-07-20 09:46 | PCM.PRE.AN2 ---
ASA Classification* ASA Classification ASA Classification: 3 and E Assessment & Plan Anesthesia* Anesthesia Assessment Anesthesia Assessment: Discussed sedation and/or anesthesia options, risks, benefits, and alternatives with patient/parents/legal guardian/POA. Questions invited. The patient/parents/legal guardian/POA seems to understand and agrees to proceed with anesthesia plan. Reviewed the physical assessment, medical history, allergy history and patient home medications list prior to surgery/procedure/anesthetic and documented any changes. Performed airway and anesthesia risk assessments. Patient is a 59-year-old female with past medical history of hyperlipidemia and smoking. She states over the past 2 to 3 weeks she has noticed pain in her right lower leg when she is up ambulating and then states it seems to resolve at rest. She states that she went to bed last night and then awoke around 5 this morning with pain numbness and tingling of her right lower leg. She states she took [id number] medication and tried to walk on it and with this there was no improvement of her pain or paresthesias and therefore she comes in for evaluation. She had CTA runoff which was reviewed with Dr. Abbott and demonstrated R SFA atherosclerosis/thrombosis with popliteal thromboembolic occlusion. She will require femoral endarterectomy with popliteal embolectomy as per surgical note. Anesthesia Type Anesthesia Type: General History Source History Obtained from:: Patient and Chart Anesthesia Focused Assessment* Temperature: 98.2 F Pulse Rate: 78 Blood Pressure: 137/88 Respiratory Rate: 19 Pulse Ox: 98 Oxygen Delivery Method: Room Air Airway Assessment Mouth opens: >3 cm Mallampati Score: I Teeth Condition: Intact Neck Range of motion (ROM): Full ROM Focused Labs Anesthesia Preop lab: CBC WBC 8.7 K/mm3 (4.4-11.0) 07/20/24 06:57 07/20/24 RBC 4.96 M/mm3 (4.2-5.4) 07/20/24 06:57 07/20/24 Hgb 15.7 g/dL (12.0-15.0) H 07/20/24 06:57 07/20/24 Hct 45.7 % (37-47) 07/20/24 06:57 07/20/24 Plt Count 178 K/mm3 (150-450) 07/20/24 06:57 07/20/24 CHEMISTRY Potassium 3.7 mmol/L (3.3-5.1) 07/20/24 06:57 07/20/24 Sodium 138 mmol/L (133-145) 07/20/24 06:57 07/20/24 BUN 13 mg/dL (4-19) 07/20/24 06:57 07/20/24 Creatinine 0.78 mg/dL (0.70-1.20) 07/20/24 06:57 07/20/24 Glucose 94 mg/dL (70-99) 07/20/24 06:57 07/20/24 TSH 1.11 uIU/mL (0.358-3.74) 01/17/23 10:38 01/17/23 COAG PT 12.4 SECONDS (11.7-14.9) 07/20/24 06:57 07/20/24 Pre-Assessment Diagnosis/Proposed Procedure Planned Operative Procedure(s): femoral endarterectomy with popliteal embolectomy, right Anesthesia History 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 When Was Last Pacemaker Check QUESTION #4 FULL TEXT: You/Your Family Experience fever (hyperthermia) with Anesthesia Last Oral Intake Last Oral intake: Last Oral Intake NPO since Meds taken in AM with sips of water? 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 miller Female HX of Motion Sickness HX of N/V After Surgery Non-Smoker Duration of Surgery greater than 60 minutes Number of Risk Factors PONV Score Any additional information?: No Height & Weight Height & Weight: Anesthesia: Height & Weight Height 5 ft 6 in 07/20/24 06:27 Weight: 70.5 kg 07/20/24 06:27 Body Mass Index (BMI) 25.0 07/20/24 06:27 Respiratory Assessment Respiratory Assessment - wet process head miller: Respiratory Tract Infection Hx - wet process head miller Hx Respiratory Tract Infection Any additional information?: No STOP Sleep Apnea STOP Sleep Apnea - wet process head miller: STOP Sleep Apnea - wet process head miller Hx Hypertension Hx Sleep Apnea CPAP BIPAP Do you snore loudly (louder than talking or can be heard Do you often feel tired/ fatigued/ sleepy during daytime? Has anyone observed you stop breathing during sleep? STOP Results QUESTION #5 FULL TEXT : Do you snore loudly (louder than talking or can be heard through closed doors)? 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 Specify any problems Hx of Preganancy in last 3 Months Nurse Filling Out Transfusion & Questions: Date: Time: Patient unable to answer at this time (ie. confused, unrespo Any additional information?: No /Reproduction History /Reproductive History - wet process head miller: /Reproductive Hx- wet process head miller Hx Now Gestational Age (in weeks): EDC: Hx Hx Para Hx Section SAB Any additional information?: No Active Medications Active Medications: Current Medications Generic Name Dose Route Start Last Admin Trade Name Freq PRN Reason Stop Dose Admin Heparin Sodium (Porcine) 0 unit 07/20/24 06:50 Heparin Injection (Vial) 5,000 Unit/Ml Vial IV UD PRN dose adjustment Protocol Heparin Sodium/Dextrose 25,000 units in 250 mls @ 9 mls/hr 07/20/24 07:00 07/20/24 07:29 CONT INF 900 units/hr .[id number] RENATA 9 mls/hr Administration Protocol As Directed Sodium Chloride 1,000 mls @ 15 mls/hr 07/20/24 10:00 IV 07/25/24 23:19 .Q48H RENATA Protocol Nicotine 14 mg 07/20/24 09:00 07/20/24 08:55 Nicotine 14 Mg Patch TD 14 mg DAILY RENATA Administration PFSH Medical History Hyperlipemia Smoker Home Medications ?Medication ?Instructions ?Recorded ?Last Taken ?Type rosuvastatin 10 mg tablet 10 mg PO DAILY 07/20/24 Unknown History Allergy/AdvReac Type Severity Reaction Status Date / Time No Known Allergies Allergy Verified 07/20/24 06:32 Surgical History no surgical history no surgical history (Pt denies surgical history, states had 'anesthesia' for vaginal deliveries (nitrous?) ) Social History Smoking Status: Current every day smoker tobacco type: cigarettes Review of Systems (Anesthesia) ROS Narrative System reviewed and no additional complaints, except as documented. Physical Exam Const alert, oriented x3 and average body habitus Resp normal respiratory effort, normal air movement and clear to auscultation bilaterally Cardio regular rate, regular rhythm, no murmurs and diaphoretic
--- NOTE | 2024-07-20 10:35 | PCM.POST.ANE ---
Anesthesia: Postop Eval I Current Vital Signs Temperature: 97 F Pulse Rate: 99 Blood Pressure: 101/66 Respiratory Rate: 20 Pulse Ox: 97 Oxygen Delivery Method: Nasal Cannula Oxygen Flow Rate (L/min): 2 Assessment Airway patent: Yes Spontaneous unlabored respirations: Yes Mental status: Awake and Calm nausea: No Vomiting: No Anesthesia Complication: No Fluid Hydration Crystalloid volume administer (ml): 400 Total IV fluid infused: 400 Progress Note Anesthesia document: Postop Eval 1 completed: Yes
[2024-07-20] MEDS: Cefazolin 2 GM in Syringe IV (11:40)
--- NOTE | 2024-07-20 13:30 | THRO_PTH ---
PATIENT: RHEA EMANUEL LOC: [facility] U#:[id number] AGE/SX: 59/F ROOM: ICU10 RE07/20/[address]: Dr. Marcelino Waddell MD : 1965 BED: 1 DIS: 07/22/2024 SPEC #: [id number] RECD: 07/21/24 11:32 STATUS: LAWSON REQ #: [id number] LAAT: 07/20/24 13:[address]: John Abbott DEPT: SURGICAL PATHOLOGY RECD BY: Bunny Robb ENTERED: 07/21/24 11:34 SP TYPE: THROMBUS OTHR DR: DO Dr. Rigo Ball MD Dr. Nicholas F Kotsonis, MD Dr. Robert Siska, MD Tissues: A - PLAQUE B - Popliteal region Procedures: Decalcification bone/plaque Surgery Specimen Level II Surgery Specimen Level III HEADER OPERATION: Femoral endarterectomy, popliteal embolectomy, fasciotomy PRE-OP DIAGNOSIS: Acute occlusion of popliteal artery due to thromboembolism, femoral artery thrombosis, right TISSUE SUBMITTED: A-Right femoral thrombus and plaque, B- Popliteal thrombus MICROSCOPIC DIAGNOSIS A: RIGHT FEMORAL THROMBUS AND PLAQUE, REMOVAL:Calcified atherosclerotic plaque and blood clot B: THROMBUS FROM POPLITEAL ARTERY, REMOVAL:Clotted blood Tomy Vega M.D., 07/25/24 MICROSCOPIC DESCRIPTION Slides are reviewed. GROSS DESCRIPTION A: The specimen is received in a container labeled with the patient's name and designated right femoral thrombus and plaque. The specimen consists of 1 tubular-shaped segment of yellow-canela plaque-like material measuring 4.5 x 1 x 0.5 cm. Also present is a 1.6 x 1 x 0.3 cm segment of red thrombus. Sectioning through the plaque like tubular structure reveals calcified plaque in the lumen. RS2. 07/21/24 Cassette summary: A1- thrombus A2- plaque, submitted after decalcification B: The specimen is received in a container labeled with the patient's name and designated popliteal thrombus. The specimen consists of 1 segment of clotted blood measuring 1.5 x 0.7 x 0.5 cm. TE1 07/21/24 CPT:24925,06105,40259,TC:5
[2024-07-20] MEDS: Bupivacaine Mpf 0.5% 30 ML VIAL (16:12)
--- NOTE | 2024-07-20 16:23 | OP.PCM_ITS ---
Operative Report (Standard) Operative Information Date of Procedure: 07/20/24 Pre-Operative Diagnosis: Acute right lower extremity ischemia, femoral and popliteal occlusion Post-Operative Diagnosis: Same In situ thrombosis of the superficial femoral artery at its origin with s ignificant plaque burden in the common femoral, profunda, superficial femoral artery Embolization to distal popliteal artery Surgery/Procedure Performed: Right common femoral thromboendarterectomy with patch angioplasty; extensive endarterectomy onto the superficial femoral artery and profunda Right lower leg embolectomy via lower leg incision 4 compartment fasciotomy Sartorius flap juice weigher: Yes Bulk Plant Manager: Lavon Yan Tasks completed by respiratory care assistant: Opening, Closing, Opening & closing, Hemostasis: Tie and Retracting Type of Anesthesia: General RN Documented Start/Stop Times: Operation Date: 07/20/24 13:30 Case Time Into Pre-Op 07/20/24 09:37 Anesthesia Start 07/20/24 11:23 Into Room 07/20/24 11:23 Procedure Start 07/20/24 12:00 Out of Pre-Op Procedure Start Time: 12:00 Procedure Stop Time: 16:00 Select all DRAINS/GRAFTS/IMPLANTS that apply: Graft Graft details: Bovine pericardial patch Estimated Blood Loss: 100 Specimen collected: Yes Description of specimen(s) removed: Right femoral plaque and thrombus Right popliteal thrombus Description of surgery: HPI: Patient is a 59-year-old female who has had approximately 2 weeks of abrupt onset short distance claudication of the right lower extremity. This morning she was awakened by new foot discomfort and numbness and presented immediately to the emergency room where a CT scan revealed acute occlusion of the proximal superficial femoral artery as well as significant atherosclerosis of the distal common femoral and profunda femoral arteries. There is secondary occlusion of the distal popliteal artery. She is taken now emergently for thromboendarterect melecio and planned fasciotomies with possible sartorius flap. Description of procedure: Upon obtaining form consent and verification correct patient procedure and site the patient was taken to the operating where she was placed on general anesthesia. She was then positioned prepped and draped in usual sterile fashion time was performed. Vertical incision was made over the common femoral artery and Bovie left cautery was dissect down through subcutaneous tissue. Self-retaining retractors and put in position and further dissection carried on the femoral sheath which was then incised vertically exposing the common femoral artery. Sharp section used to dissect free the common femoral artery up to the inguinal ligament where the vessel was relatively free of plaque and soft. A right ankle was used to place vessel loop at this location we then turned attention distally with sharp dissection used to dissect free the superficial femoral artery to beyond the area of visible plaque and thrombus. A right angle was used to place a vessel at this location and then sharp dissection was dissect free the profundofemoral artery down onto its secondary branches and a right angle used to place a vessel loop. Next longitudinal incision was made on the medial calf and Bovie used to dissect down to the level the fascia. The fascia was then incised and self-retaining retractor put in position. Further dissection was then carried down to the soleus muscle and dissection carried to the superior aspect of his connection to the tibia. The attachment was then taken down with Bovie with care taken to protect the underlying nerve and vein structures. Once a satisfactory length of the soleus muscle was mobilized fully decompressing the deep posterior compartment we then used sharp dissection to dissect free the popliteal artery and a right angle used to place a vessel loop proximal and distal. The patient was then heparinized allowed to circulate for 3 minutes the femoral vessels then occluded with Vesseloops and a longitudinal arteriotomy created with 11 blade extended with Waggoner scissors onto the superficial femoral artery. There was significant calcified plaque particularly within the distal common femoral artery at the bifurcation and acute thrombus for the first 3 cm of the SFA. There was also significant plaque and thrombus into the profunda origin so the arteriotomy was then extended down onto the profunda beyond the plaque and thrombus. We then performed our endarterectomy with a freer elevator with satisfactory endpoint distally onto the SFA and onto the profunda. Given the length of endarterectomy and requirement to extend on the both the SFA and the profunda a modifier 22 will be applied given approximately 1 hour of extra operative time. The distal endpoints were then tacked with 7-0 Prolene interrupted sutures and the profundus arteriotomy closed with 6-0 Prolene in running fashion. After the segment of the arteriotomy was closed a bovine pericardial patch was secured onto the superficial femoral artery with 5-0 Prolene in a running fashion. Prior to completing the suture line vessels are backbled after completing suture line clamps removed and satisfactory stasis was noted. There is a palpable pulse within the endarterectomy patch and into the proximal superficial femoral artery and profundofemoral artery. Prior to releasing the SFA clamp we had clamped the popliteal artery to prevent any further distal extension of the embolus that was in the popliteal artery. Next the popliteal artery was occluded with Vesseloops and a transverse arteriotomy created with 11 blade extended the Waggoner scissors. A 2 Jakub was then passed proximally for 2 passes with no thrombus returned and brisk pulsatile inflow returned. The Jakub was then passed distally and significant thrombus was returned on the first pass with 2 subsequent passes with no further thrombus. There is now brisk backbleeding so both the proximal and distal vessels were flushed with heparinized saline. The arteriotomy was then closed transversely with 6-0 Prolene in a running fashion. Prior to completing suture line vessels are backbled and after completing the suture line clamps removed satisfactory stasis was noted. There is palpable pulse in the popliteal artery across the repair and normal Doppler signal. There also was Doppler signal in the dorsalis pedis in the foot. Next longitudinal incision made at the lateral aspect of the lower leg and Bovie used to dissect down to level the fascia. The anterior compartment fascia was then incised and extended the length of the lower leg. Finally the lateral compartment was incised and extended the length of the lower leg. Incision was then inspected for hemostasis and attention turned to the sartorius flap. Bovie was used to dissect laterally to the femoral vessels superficial to the fascia. The fascia overlying the sartorius was then incised and lengthened longitudinally. The sartorius was then mobilized along its lateral edge with the lateral femoral cutaneous nerve identified and mobilized laterally. Once the muscle was mobilized up to its insertion into the anterior superior iliac spine this insertion was divided with Bovie and the muscle reflected inferiorly and medially to cover the femoral patch. Surgicel topical hemostatic was applied and the incision was inspected for hemostasis. The sartorius muscle was secured over the femoral vessels with 2-0 Vicryl interrupted suture. Incision was then closed with 3-0 Vicryl, 4 Monocryl and Dermabond for the skin. The lower leg incisions initially were closed with jane loosely however over the ensuing several minutes there appeared to be significant tension on the skin and jane and is felt that this would contribute to potential secondary compartment syndrome so the jane removed in the incision packed with Kerlix and the lower leg wrapped with an Warren wrap. The patient was then taken to the recovery room with anticipated mission to the intensive care unit for hemodynamic and vascular monitoring. Surgical Findings: See above Biphasic dorsalis pedis Doppler signal Complications Complications: No
--- NOTE | 2024-07-20 16:41 | PCM.POST.ANE ---
Anesthesia: Postop Eval I Current Vital Signs Temperature: 96.5 F Pulse Rate: 54 Blood Pressure: 129/78 Respiratory Rate: 20 Pulse Ox: 99 Oxygen Delivery Method: Room Air Assessment Airway patent: Yes Spontaneous unlabored respirations: Yes Mental status: Awake and Uncooperative nausea: No Vomiting: No Anesthesia Complication: No Fluid Hydration Crystalloid volume administer (ml): 1,500 Total IV fluid infused: 1,500 Progress Note Anesthesia document: Postop Eval 1 completed: Yes
--- NOTE | 2024-07-20 17:08 | POSTOPAN2_ITS ---
Anesthesia Postop Eval I Sum Postop Eval Completion status Anesthesia document: Postop Eval 1 completed: Yes Anesthesia Postop Eval I Summary Anesthesia Postop Eval I Summary: Anesthesia Postop Eval I: Assessment Summary Airway patent Yes 07/20/24 16:42 [email or web address] Spontaneous unlabored Yes 07/20/24 16:42 [email or web address] respirations Mental status Awake, 07/20/24 16:42 [email or web address] Uncooperative nausea No 07/20/24 16:42 [email or web address] Vomiting No 07/20/24 16:42 [email or web address] Anesthesia Postop Eval I: Fluid Summary Crystalloid volume administer 1,500 07/20/24 16:42 [email or web address] (ml) Colloids volume administered ( ml) Blood Product volume administered (ml) Total IV fluid infused 1,500 07/20/24 16:42 [email or web address] Anesthesia Postop Eval I: Summary Notes Anesthesia Complication No 07/20/24 16:42 [email or web address] Anesthesia Complication Comment: Post-operative progress note Anesthesia: Postop Eval II Evaluation Mental status: Awake Pain Level: 0 nausea: No Vomiting: No Complications Anesthesia Complication: No
--- NOTE | 2024-07-20 17:08 | PCM.POSTANE2 ---
Anesthesia Postop Eval I Sum Postop Eval Completion status Anesthesia document: Postop Eval 1 completed: Yes Anesthesia Postop Eval I Summary Anesthesia Postop Eval I Summary: Anesthesia Postop Eval I: Assessment Summary Airway patent Yes 07/20/24 16:42 [email or web address] [email or web address] Spontaneous unlabored Yes 07/20/24 16:42 [email or web address] [email or web address] respirations Mental status Awake, 07/20/24 16:42 [email or web address] Uncooperative nausea No 07/20/24 16:42 [email or web address] [email or web address] Vomiting No 07/20/24 16:42 [email or web address] [email or web address] Anesthesia Postop Eval I: Fluid Summary Crystalloid volume administer 1,500 07/20/24 16:42 [email or web address] [email or web address] (ml) Colloids volume administered ( ml) Blood Product volume administered (ml) Total IV fluid infused 1,500 07/20/24 16:42 [email or web address] [email or web address] Anesthesia Postop Eval I: Summary Notes Anesthesia Complication No 07/20/24 16:42 [email or web address] Anesthesia Complication Comment: Post-operative progress note Anesthesia: Postop Eval II Evaluation Mental status: Awake Pain Level: 0 nausea: No Vomiting: No Complications Anesthesia Complication: No
[2024-07-20] MEDS: Cefazolin 1 GM/50 ML BAG IV (20:56)
[2024-07-20] MEDS: Atorvastatin Calcium 20 MG Tablet PO (20:57)
[2024-07-20] MEDS: oxyCODONE 5 MG Tablet PO (21:16)
[2024-07-20] MEDS: MELATONIN 3 MG TABLET PO (23:18)
[2024-07-21] VITALS (9 sets, daily range): BP systolic 100–106; BP diastolic 51–64; PULSE 62–97; RESP 14–18; TEMP 36.4–37.4; O2SAT 93–100; BMI 25.2
[2024-07-21] MEDS: Cefazolin 1 GM/50 ML BAG IV (03:59)
[2024-07-21] MEDS: Acetaminophen 325 MG Tablet 650 MG PO (04:01)
[2024-07-21] MEDS: Morphine 2 MG/ML Syringe IV ×3 (04:07→21:11)
[2024-07-21] MEDS: Ondansetron 4 MG/2 ML Vial IV (04:07)
[2024-07-21 05:31] LABS: Absolute Lymphocyte Count 1.58 X10^3/uL (0.83-4.51); Basophil# 0.04 X10^3/uL; Basophil% 0.4 % (0-1); Hematocrit 39.3 % (37-47); Hemoglobin 13.4 g/dL (12.0-15.0); Lymphocyte # 1.58 X10^3/ul (0.83-4.51); Lymphocyte % 14.8 % (19-41); Mean Corp Hgb Conc 34.1 g/dL (32-36); Mean Corpuscular Hgb 31.7 pg (27.0-32.0); Mean Corpuscular Volume 92.9 fL (81-99); Mean Platelet Vol. 9.9 fl (6.2-12.0); Monocyte# 1.05 X10^3/uL; Monocyte% 9.9 % (0-10); NRBC Flagged by Analyzer 0 % (0-5); Neutrophil # 7.95 X10^3/uL (2.7-7.7); Neutrophil % 74.6 % (47-70); Platelet Count 150 K/mm3 (150-450); RBC Distribution Width SD 44.2 fl (35.1-43.9); Red Blood Count 4.23 M/mm3 (4.2-5.4); White Blood Count 10.7 K/mm3 (4.4-11.0)
[2024-07-21 06:06] LABS: Anion Gap 12 (5-15); BUN 9 mg/dL (4-19); BUN/Creat Ratio 12.3 RATIO (10-20); Calcium,Total 8.6 mg/dL (7.6-11.0); Carbon Dioxide 19.9 mmol/L (21.0-32.0); Chloride 107 mmol/L (98-108); Creatinine, Serum 0.75 mg/dL (0.70-1.20); EST Glomerular Filtration Rate 90 (>60); Estimated Creatinine Clearance 79.71 ml/min (50-250); Glucose 109 mg/dL (70-99); Potassium 4.2 mmol/L (3.3-5.1); Sodium Level 139 mmol/L (133-145)
--- NOTE | 2024-07-21 07:39 | CON.PCM.SX_ITS ---
Assessment & Plan Assessment/Plan (1) Leg wound, right: PLAN: From fasciotomies on 20 July 2024 Plan for dressing changes today and VAC tomorrow (three times weekly changes). F/u in the wound care center on 26 July 2024, followed by possible STSG v. delayed primary closure on 28 July 2024 if wounds ready or if patient desires (will submit for insurance approval just in case). HPI Consult Data Date of Consult: 07/21/24 HPI Narrative HPI Narrative: Dhara Nina is a 59 YO female with a past medical history of acute occlusion of the right popliteal artery 2/2 thrpombosis who is post-op day 1 from right the following: Right common femoral thromboendarterectomy with patch angioplasty; extensive endarterectomy onto the superficial femoral artery and profunda. Right lower leg embolectomy via lower leg incision with 4 compartment fasciotomy and a right groin Sartorius flap. Plastics has been consulted for right lower extremity fasciotomy wounds, which were left open following yesterday's intervention 2/2 swelling. Patient is a smoker. She reports some pain in the right lower extremity, but tolerated this morning's dressing change. [facility] Medical History Hyperlipemia Smoker Home Medications ?Medication ?Instructions ?Recorded ?Last Taken ?Type ixekizumab 80 mg/mL subcutaneous 80 mg subcut .4 weeks psoriasis 07/20/24 Unknown History auto-injector (Taltz Autoinjector) rosuvastatin 10 mg tablet 10 mg PO DAILY 07/20/24 Unkn own History Allergy/AdvReac Type Severity Reaction Status Date / Time No Known Allergies Allergy Verified 07/20/24 06:32 Surgical History no surgical history Social History Smoking Status: Current every day smoker tobacco type: cigarettes Physical Exam Narrative Right lower extremity Motor: able to plantarflex and dorsiflex right foot Sensation: Intact throughout on the right foot. Vascular: 2+ Dorsalis pedis pulse on the right foot, warm and well perfused. Dressings: C/D/I, no strike through on the right leg Lab / Micro Data 07/21/24 05:04 07/21/24 05:04 Labs: Laboratory Results - last 24 hr 07/20/24 06:57: PT 12.4, INR 0.9, APTT 24.1, Sodium 138, Potassium 3.7, Chloride 104, Carbon Dioxide 20.4 L, Anion Gap 14, BUN 13, Creatinine 0.78, Estim Creat Clear Calc 70.90, Est GFR (MDRD) Non-Af 86, BUN/Creatinine Ratio 16.4, Glucose 94, Calcium 9.3 07/21/24 05:04: WBC 10.7, RBC 4.23, Hgb 13.4, Hct 39.3, MCV 92.9, MCH 31.7, MCHC 34.1, RDW Std Deviation 44.2 H, RDW Coeff of Mesfin 13.0, Plt Count 150, MPV 9.9, Immature Gran % (Auto) 0.300, Neut % (Auto) 74.6 H, Lymph % (Auto) 14.8 L, [place] % (Auto) 9.9, Eos % (Auto) 0.0, Baso % (Auto) 0.4, Absolute Neuts (auto) 8.0 H, Absolute Lymphs (auto) 1.58, Nucleated RBC % 0, Sodium 139, Potassium 4.2, Chloride 107, Carbon Dioxide 19.9 L, Anion Gap 12, BUN 9, Creatinine 0.75, Estim Creat Clear Calc 79.71, Est GFR (MDRD) Non-Af 90, BUN/Creatinine Ratio 12.3, G lucose 109 H, Calcium 8.6 Imaging Radiology Impression Abdomen/Pelvis CTA 07/20/24 06:41 IMPRESSION: Acute occlusive thrombus involving the right common femoral/proximal femoral artery with reconstitution below. Diminutive flow is noted within the infrapopliteal arteries on the right side. Recommend emergent vascular surgery/interventional radiology consultation. Bulky and heterogeneous uterus. 6.5 cm hypodense structure within the left adnexa may be related to a left adnexal cyst. Further evaluation is warranted. Critical findings discussed with Virgil Henderson MD in the emergency room at 8 a.m.. One or more dose reduction techniques were used (e.g., Automated exposure control, adjustment of the mA and/or kV according to patient size, use of iterative reconstruction technique). Red Alert: Acute thrombosis of the right common femoral/proximal femoral artery. The critical information above was relayed directly by me by telephone to Asa Henderson MD on 07/20/2024 at 8:00 am with readback verification. Reading Location: [id number] Echocardiogram 07/20/24 08:18 Interpretation Summary The estimated ejection fraction is 60 %. No evidence for diastolic dysfunction. Mild (1+) aortic valve insufficiency. Ordering Physician: Yadi Galvez Referring Physician: Rigo Burns Performed By: Melina Gomez RDCS Charges/Coding Multi Select Codes Visit Charges Office Visit/Consults: 51901 IP Consult L4
--- NOTE | 2024-07-21 08:16 | PN.SURG_ITS ---
Subjective Subjective I saw Dhara this morning along with wound care nurse Yoko. She was resting in bed on the phone with a family member when I arrived. She reports expected pain in the groin and the lower leg incision sites, mostly with moving her leg. She also complains of significant back pain, she feels like it is from lying on the operating table yesterday, this made it difficult for her to sleep. She otherwise has no complaints. She is visibly anxious, she was shaking a bit, especially in her legs; she reports this is normal for her in anxious situations, occurs even at the dentist. She did not require any dressing changes overnight, there is some bleed through to the FLORIDALMA wrap but minimal. Objective Data Objective Data Vital Signs: Vital Signs Temp Pulse Resp BP Pulse Ox O2 Del Method 97.6 F L 62 17 106/53 L 98 Room Air 07/21/24 04:17 07/21/24 04:17 07/21/24 04:17 07/21/24 04:17 07/21/24 04:17 07/21/24 04:17 Oxygen Delivery Method Room Air Weight: 157 lb 3.033 oz Body Mass Index (BMI) 25.2 Intake & Output: Intake and Output for Last 24 Hours 07/19/24 07/20/24 07/21/24 23:59 23:59 23:59 Intake Total 1166.9 / 1166.9 50 / 50 Output Total 250 / 250 Balance 916.9 / 916.9 50 / 50 Lab / Micro Data 07/21/24 05:04 07/21/24 05:04 Labs: Laboratory Results - last 24 hr 07/21/24 05:04: WBC 10.7, RBC 4.23, Hgb 13.4, Hct 39.3, MCV 92.9, MCH 31.7, MCHC 34.1, RDW Std Deviation 44.2 H, RDW Coeff of Mesfin 13.0, Plt Count 150, MPV 9.9, Immature Gran % (Auto) 0.300, Neut % (Auto) 74.6 H, Lymph % (Auto) 14.8 L, [place] % (Auto) 9.9, Eos % (Auto) 0.0, Baso % (Auto) 0.4, Absolute Neuts (auto) 8.0 H, Absolute Lymphs (auto) 1.58, Nucleated RBC % 0, Sodium 139, Potassium 4.2, Chloride 107, Carbon Dioxide 19.9 L, Anion Gap 12, BUN 9, Creatinine 0.75, Estim Creat Clear Calc 79.71, Est GFR (MDRD) Non-Af 90, BUN/Creatinine Ratio 12.3, G lucose 109 H, Calcium 8.6 Radiography Diagnostic Testing: Radiology Impression Echocardiogram 07/20/24 08:18 Interpretation Summary The estimated ejection fraction is 60 %. No evidence for diastolic dysfunction. Mild (1+) aortic valve insufficiency. Ordering Physician: Yadi Galvez Referring Physician: Rigo Burns Performed By: Melina Gomez RDCS Physical Exam Const alert, oriented x3 and no apparent distress General Appearance: cooperative and anxious HEENT normocephalic, head/scalp atraumatic, hearing grossly normal bilaterally, external ears normal and external nose normal Eyes General Eye: normal appearance of both eyes Neck General: normal visual inspection and trachea midline Resp normal respiratory effort, normal air movement, no retractions and no use of accessory muscles Effort and Inspection: able to speak in complete sentences; Negative for labored, grunting or stridor Cardio regular rate and regular rhythm GI GI Narrative: Abdomen soft and nontender to palpation, no ecchymosis Back/Spine Back/Spine Narrative: R flank nontender to palpation, no ecchymosis Extremity Extremity Narrative: Strong, palpable R DP pulse; R foot is appropriately warm and pink; Minimal RLE edema R calf fasciotomy sites with all visible tissue viable; some areas of clotted blood, small amount of oozing from the skin edges and fatty tissue; wound edges viable; no muscle/tissue protruding past the skin, mild swelling. R groin incision site with Prevena vac dressing in place, maintaining good seal. No significant ecchymosis, swelling. Assessment & Plan Assessment/Plan (1) Femoral artery thrombosis, right: (2) Acute occlusion of popliteal artery due to thromboembolism: PLAN: Plan She is POD#1 s/p Right common femoral thromboendarterectomy with patch angioplasty; extensive endarterectomy onto the superficial femoral artery and profunda, right lower leg embolectomy via lower leg incision, and 4 compartment fasciotomy. The fasciotomy sites were left open due to swelling present at the end of the procedure. On my exam this morning, vascular status significantly improved from preop with palpable R pedal pulse. Postop dressings were taken down from the R lower leg, the fasciotomy sites are satisfactory in appearance, all tissue appears viable; she has relatively mild edema. Redressed the fasciotomy sites with Yoko, loosely packed with kerlix, followed by ABD, kerlix wrap, and FLORIDALMA wrap. Plan to change again this evening, sooner as needed to manage any drainage/bleed through. Likely going to transition to wound vacs tomorrow. Also consulted Dr. Calvert to evaluate in case she requires further intervention for complete wound closure in the future. Hgb within normal limits this morning 13.4 decreased from 15.7 preop; decrease from expected blood loss intraoperatively and oozing postoperatively; consider this stable. Will start heparin at 500 units/hour continuous this morning. Recheck Hgb this afternoon and progress to therapeutic weight-based drip as long as this remains stable. Start ASA 81mg daily today. Will consider Xarelto 2.5mg BID for her PAD at discharge. For her back pain, she did not have much benefit from oxycodone 5mg. Added methocarbamol.
--- NOTE | 2024-07-21 08:17 | WOUNDNOTE ---
wound photo: right medial lower leg
--- NOTE | 2024-07-21 08:18 | WOUNDNOTE ---
wound photo: right lateral lower leg
[2024-07-21] MEDS: Methocarbamol 750 MG Tablet 1500 MG PO ×2 (09:48→22:06)
[2024-07-21] MEDS: Aspirin E.C. 81 MG Tablet PO (09:48)
--- NOTE | 2024-07-21 10:24 | PCM.PN.HOSP ---
Subjective Subjective Doing well, no issues overnight. Had surgery yesterday. Awaiting evaluation by plastic surgery Objective Data Objective Data Vital Signs: Vital Signs Temp Pulse Resp BP Pulse Ox O2 Del Method 97.6 F L 62 17 106/53 L 98 Room Air 07/21/24 04:17 07/21/24 04:17 07/21/24 04:17 07/21/24 04:17 07/21/24 04:17 07/21/24 04:17 Oxygen Delivery Method Room Air Weight: 157 lb 3.033 oz Body Mass Index (BMI) 25.2 Intake & Output: Intake and Output for Last 24 Hours 07/20/24 07/21/24 07/22/24 03:59 03:59 03:59 Intake Total 1166.9 / 1166.9 50 Output Total 250 / 250 Balance 916.9 / 916.9 Lab / Micro Data 07/21/24 05:04 07/21/24 05:04 Labs: Laboratory Results - last 24 hr 07/21/24 05:04: WBC 10.7, RBC 4.23, Hgb 13.4, Hct 39.3, MCV 92.9, MCH 31.7, MCHC 34.1, RDW Std Deviation 44.2 H, RDW Coeff of Mesfin 13.0, Plt Count 150, MPV 9.9, Immature Gran % (Auto) 0.300, Neut % (Auto) 74.6 H, Lymph % (Auto) 14.8 L, [place] % (Auto) 9.9, Eos % (Auto) 0.0, Baso % (Auto) 0.4, Absolute Neuts (auto) 8.0 H, Absolute Lymphs (auto) 1.58, Nucleated RBC % 0, Sodium 139, Potassium 4.2, Chloride 107, Carbon Dioxide 19.9 L, Anion Gap 12, BUN 9, Creatinine 0.75, Estim Creat Clear Calc 79.71, Est GFR (MDRD) Non-Af 90, BUN/Creatinine Ratio 12.3, Glucose 109 H, Calcium 8.6 07/21/24 09:45: APTT 25.0 Radiography Diagnostic Testing: Radiology Impression Echocardiogram 07/20/24 08:18 Interpretation Summary The estimated ejection fraction is 60 %. No evidence for diastolic dysfunction. Mild (1+) aortic valve insufficiency. Ordering Physician: Yadi Galvez Referring Physician: Rigo Burns Performed By: Melina Gomez RDCS Physical Exam Narrative General: Alert, Oriented x3, Cooperative, No apparent distress HEENT: Atraumatic, PERRLA, EOMI, Normocephalic Oral: Moist Mucosa Neck: Supple, No JVD Lungs: Diminished, Normal air movement, No rhonchi, No wheeze, No rales Cardiovascular: Regular rate, Regular Rhythm, Normal S1, Normal S2, No murmurs Abdomen: Soft, Non Tender, Non-Distended, No Hepato-splenomegaly Extremities: No edema, Capillary Refill Less than 3 Seconds Skin: No rashes, No breakdown Musculoskeletal: Some tenderness in her right lower extremity, dressing intact currently wrapped Neurological: No focal neurological deficits, Motor Exam 5/5 strength throughout, Sensory exam intact to light touch and pain Psych/Mental Status: Normal Affect, Appropriate Assessment & Plan Assessment/Plan (1) Acute occlusion of artery of lower extremity: (2) Femoral artery thrombosis, right: PLAN: Plan Patient is a 59-year-old female who presented [facility] ED on 07/20/2024 with acute right lower extremity pain. 1. Right lower extremity acute arterial occlusion status post right common femoral thromboendarterectomy and 4 compartment fasciotomy ? Admit under inpatient status to PCU. Vascular surgery consulted. CTA abdomen pelvis with runoff showed an acute occlusive thrombus involving the right common femoral/proximal femoral artery along with diminutive flow in the infrapopliteal arteries on the right side. Started on heparin drip in the ED with improvement in pain, skin pallor and pulses. Plan was for urgent intervention with vascular surgery this afternoon, will follow-up on result. 07/21/2024: Awaiting evaluation by plastic surgery for her fasciotomies during her right lower extremity 2. Hyperlipidemia ? Most recent lipid panel on 2/11 showed total cholesterol 235, LDL 118, HDL 78. Has been on rosuvastatin 10 mg daily at home. Will increase to rosuvastatin 40 mg daily at this time. 3. Tobacco use disorder ? Currently smoking about half pack of cigarettes per day. Nicotine patch ordered per patient request. Strongly encouraged cessation on discharge. DVT: Heparin drip Charges/Coding Visit Charges Inpatient E&M: 84548 Subs Hosp L2
[2024-07-21] MEDS: oxyCODONE 5 MG Tablet 10 MG PO ×3 (10:41→22:06)
[2024-07-21] MEDS: HEPARIN/D5w 25,000 UNITS 25,000 UNITS/250 ML IV.SOLN. 5 UNITS CONT INF (10:42)
--- NOTE | 2024-07-21 11:00 | CASEMGMT ---
RAMON FRANCO Face to Face with patient for initial transition planning/care coordination assessment. RAMON FRANCO introduced self and role at [facility]. Patient lying in bed, alert and oriented. Patient willing to participate in assessment and is able to answer all questions appropriately. Care providers, pharmacy, and demographics verified. Strata: 1 PCP: Grant Specialists: [employer] Director Alondra Preferred Pharmacy: [facility] Retail at discharge Insurance: [facility] Prescription Benefit: yes Living Will/HPOA: none LNOK: , son Living Arrangements: Patient lives in a single story duplex, son lives next door, 3 steps to enter the home. Patient was independent at home. Transportation: self, , son DME/HHC: Patient denies DME in the home, may benefit from walker at discharge. No previous HHC or SNF. Patient wishes to discharge home, plastic surgeon at bedside stating patient will go home with wound vac. RAMON FRANCO discussed HHC with patient, list provided. Patient has no preferences and is agreeable to have multiple referrals be sent out due to location and insurance. Patient states he has no further needs or concerns at this time. Discharge strategic planning director notified to send HHC referrals. CM to follow for discharge planning needs that may arise. Disposition Plan: Patient to discharge home with HHC, family support and follow-up plans in place. Samia GONZALEZ, RN, CM
--- NOTE | 2024-07-21 11:29 | CASEMGMT ---
Discharge Planning A list of?HH providers including quality and resource use data and consistent with the patient's preferred geographic region, medical needs, and insurance network was created in [facility] Guide.? This list was provided to the RN SALVADOR. Isa Guzman, Discharge Planning Asst.
--- NOTE | 2024-07-21 12:06 | CASEMGMT ---
Addendum entered by Isa Guzman 07/21/24 15:39: [facility] declined d/t being out of area. [facility] declined d/t being [facility]. VMs left for [facility] and [facility]. Not able to get call through to [facility]. [facility] uncertain if they take [facility] Community plan and they only provide SN. Additionally, their fax machine is down and the admissions person is out for possibly the rest of the week. She suggested to call back tomorrow if we still need services. RN CM updated. Isa Guzman DC Planning Asst. Addendum entered by Isa Guzman 07/21/24 14:12: [facility], [facility], and have declined. VM left for N. Referrals sent to [facility], [facility], [facility], [facility], and [facility]. Isa Guzman DC Planning Asst. Original Note: Discharge Plannning HH referral sent to [facility], [facility], [facility], . Isa Guzman DC Planning Asst.
[2024-07-21] MEDS: Acetaminophen 500 MG Tablet 1000 MG PO ×2 (13:09→22:06)
[2024-07-21 14:06] LABS: Hemoglobin 13.1 g/dL (12.0-15.0)
[2024-07-21] MEDS: 0.9% Saline Lock 10 ML Syringe IV ×2 (16:15→21:12)
[2024-07-21] MEDS: HEPARIN/D5w 25,000 UNITS 25,000 UNITS/250 ML IV.SOLN. 11 UNITS CONT INF (19:00)
[2024-07-21] MEDS: Atorvastatin Calcium 20 MG Tablet PO (22:06)
[2024-07-21] MEDS: traZODone 50 MG Tablet PO (22:07)
[2024-07-22] VITALS: BP 100/64; PULSE 94; RESP 18; TEMP 37.6; O2SAT 98
[2024-07-22] MEDS: Morphine 2 MG/ML Syringe IV ×2 (00:04→09:03)
[2024-07-22 01:22] LABS: Partial Thromboplast Time 115.5 Seconds (24.1-36.2)
[2024-07-22] MEDS: oxyCODONE 5 MG Tablet 10 MG PO ×4 (02:07→15:07)
[2024-07-22 04:00] VITALS: BP 98/59; PULSE 74; RESP 16; TEMP 36.3; O2SAT 92
[2024-07-22 05:27] VITALS: BMI 25.0
[2024-07-22 06:00] VITALS: BP 100/64; PULSE 75; RESP 16; TEMP 36.3; O2SAT 97
[2024-07-22] MEDS: Acetaminophen 500 MG Tablet 1000 MG PO ×2 (06:17→13:56)
[2024-07-22] MEDS: Methocarbamol 750 MG Tablet 1500 MG PO ×2 (06:18→13:57)
[2024-07-22 06:49] LABS: Absolute Lymphocyte Count 1.87 X10^3/uL (0.83-4.51); Absolute Neutrophil Count 4.4 X10^3/uL (2.0-7.7); Basophil# 0.07 X10^3/uL; Eosinophil# 0.02 X10^3/uL; Eosinophils% 0.3 % (0-5); Hematocrit 37.2 % (37-47); Hemoglobin 12.6 g/dL (12.0-15.0); Lymphocyte # 1.87 X10^3/ul (0.83-4.51); Lymphocyte % 25.7 % (19-41); Mean Corp Hgb Conc 33.9 g/dL (32-36); Mean Corpuscular Hgb 31.7 pg (27.0-32.0); Mean Corpuscular Volume 93.5 fL (81-99); Mean Platelet Vol. 10.1 fl (6.2-12.0); Monocyte# 0.91 X10^3/uL; Monocyte% 12.5 % (0-10); NRBC Flagged by Analyzer 0 % (0-5); Neutrophil # 4.41 X10^3/uL (2.7-7.7); Neutrophil % 60.4 % (47-70); Platelet Count 131 K/mm3 (150-450); RBC Distribution Width CV 13.2 % (11.6-14.6); RBC Distribution Width SD 45.1 fl (35.1-43.9); Red Blood Count 3.98 M/mm3 (4.2-5.4); White Blood Count 7.3 K/mm3 (4.4-11.0)
[2024-07-22 07:02] LABS: Anion Gap 12 (5-15); BUN 8 mg/dL (4-19); BUN/Creat Ratio 10.5 RATIO (10-20); Calcium,Total 8.1 mg/dL (7.6-11.0); Carbon Dioxide 18.2 mmol/L (21.0-32.0); Chloride 106 mmol/L (98-108); Creatinine, Serum 0.72 mg/dL (0.70-1.20); EST Glomerular Filtration Rate 95 (>60); Estimated Creatinine Clearance 76.81 ml/min (50-250); Glucose 106 mg/dL (70-99); Potassium 3.8 mmol/L (3.3-5.1); Sodium Level 136 mmol/L (133-145)
[2024-07-22 07:30] VITALS: O2SAT 94
--- NOTE | 2024-07-22 08:33 | PCM.PN.SRG ---
Subjective Subjective I saw Dhara this morning resting comfortably in bed. She notes she had a lot of pain around the calf incision sites last night which felt like it was due to her FLORIDALMA wrap being too tight, when the FLORIDALMA was loosened this improved significantly. Otherwise, her pain has been well controlled with oxycodone through the morning. Her back pain has also been improved, the methocarbamol added yesterday seemed to help with that. She has not had any significant drainage through her dressings. Her Hgb remains stable. Objective Data Objective Data Vital Signs: Vital Signs Temp Pulse Resp BP Pulse Ox O2 Del Method 97.3 F L 75 16 100/64 94 Room Air 07/22/24 06:00 07/22/24 06:00 07/22/24 06:00 07/22/24 06:00 07/22/24 07:30 07/22/24 07:30 Oxygen Delivery Method Room Air Weight: 155 lb 6.814 oz Body Mass Index (BMI) 25.0 Intake & Output: Intake and Output for Last 24 Hours 07/20/24 07/21/24 07/22/24 23:59 23:59 23:59 Intake Total 1166.9 / 1166.9 97.20 / 457.20 790.22 / 790.22 Output Total 250 / 250 0 / 0 Balance 916.9 / 916.9 97.20 / 457.20 790.22 / 790.22 Lab / Micro Data 07/22/24 06:30 07/22/24 06:30 Labs: Laboratory Results - last 24 hr 07/21/24 09:45: APTT 25.0 07/21/24 14:00: Hgb 13.1 07/22/24 00:00: APTT 115.5 H* 07/22/24 06:30: WBC 7.3, RBC 3.98 L, Hgb 12.6, Hct 37.2, MCV 93.5, MCH 31.7, MCHC 33.9, RDW Std Deviation 45.1 H, RDW Coeff of Mesfin 13.2, Plt Count 131 L, MPV 10.1, Immature Gran % (Auto) 0.100, Neut % (Auto) 60.4, Lymph % (Auto) 25.7, [place] % (Auto) 12.5 H, Eos % (Auto) 0.3, Baso % (Auto) 1.0, Absolute Neuts (auto) 4.4, Absolute Lymphs (auto) 1.87, Nucleated RBC % 0, Sodium 136, Potassium 3.8, Chloride 106, Carbon Dioxide 18.2 L, Anion Gap 12, BUN 8, Creatinine 0.72, Estim Creat Clear Calc 76.81, Est GFR (MDRD) Non-Af 95, BUN/Creatinine Ratio 10.5, Glucose 106 H, Calcium 8.1 Physical Exam Const alert, oriented x3 and no apparent distress General Appearance: cooperative and anxious HEENT normocephalic, head/scalp atraumatic, hearing grossly normal bilaterally, external ears normal and external nose normal Eyes General Eye: normal appearance of both eyes Neck General: normal visual inspection and trachea midline Resp normal respiratory effort, normal air movement, no retractions and no use of accessory muscles Effort and Inspection: able to speak in complete sentences; Negative for labored, grunting or stridor Cardio regular rate and regular rhythm GI GI Narrative: Abdomen soft and nontender to palpation, no ecchymosis Back/Spine Back/Spine Narrative: R flank nontender to palpation, no ecchymosis Extremity Extremity Narrative: Strong, palpable R DP pulse; R foot is appropriately warm and pink; Minimal RLE edema R calf fasciotomy sites with all visible tissue viable; a bit more swelling compared to yesterday, but remains mild overall; small amount of oozing from the skin edges and fatty tissue; wound edges viable R groin incision site with Prevena vac dressing in place, maintaining good seal. No significant ecchymosis, swelling. Psych mental status grossly normal Appearance: grossly normal Attitude: calm and engaged Activity / Motor Behavior: appropriate eye contact Speech: normal speech Judgement: judgement good Assessment & Plan Assessment/Plan (1) Femoral artery thrombosis, right: (2) Acute occlusion of popliteal artery due to thromboembolism: PLAN: Plan She is POD#2 s/p Right common femoral thromboendarterectomy with patch angioplasty; extensive endarterectomy onto the superficial femoral artery and profunda, right lower leg embolectomy via lower leg incision, and 4 compartment fasciotomy. The fasciotomy sites were left open due to swelling present at the end of the procedure. Vascular exam remains satisfactory, palpable R pedal pulse. Prevena wound vac dressing in the R groin to be left in place for 7 days postop if possible, to remove next Friday. Once the Prevena is removed, the R groin incision may be left open to air as it is closed with skin glue. Will proceed with wound vac application to the lower leg fasciotomy sites today. Discussed with Dr. Calvert, planning for her to follow-up with him at the wound center Friday and then will consider closure/graft on outpatient basis possible later next week depending on how she progresses with the vac. [facility] has had difficulty finding [facility] agency to accept due to her location and insurance, if [facility] not able to be arranged she should be OK to have vac placed today and wait until Friday to have it changed next at the wound center. Plan to discontinue heparin at discharge and start Xarelto 2.5mg BID instead if her insurance covers this well. Continue ASA 81mg daily indefinitely. She will work with PT/OT today. Only restriction from surgery standpoint is no lifting >20 pounds for 3 weeks. Otherwise, activity as tolerated. If her pain remains well controlled on oral regimen, she does well with PT, and tolerates vac placement well then she would be appropriate for discharge this afternoon from vascular perspective. Would plan for follow-up in the office in 2 weeks.
--- NOTE | 2024-07-22 08:34 | PCM.PN.SRG ---
Subjective Subjective Doing well overall today. Social work is having problems arranging home health with the wound VAC. Patient is not interested in coming here for wound VAC changes to [facility] (40 minutes from her home). She would like more definitive reconstruction of the fasciotomy wounds of possible. Objective Data Objective Data Vital Signs: Vital Signs Temp Pulse Resp BP Pulse Ox O2 Del Method 97.3 F L 75 16 100/64 94 Room Air 07/22/24 06:00 07/22/24 06:00 07/22/24 06:00 07/22/24 06:00 07/22/24 07:30 07/22/24 07:30 Oxygen Delivery Method Room Air Weight: 155 lb 6.814 oz Body Mass Index (BMI) 25.0 Intake & Output: Intake and Output for Last 24 Hours 07/20/24 07/21/24 07/22/24 23:59 23:59 23:59 Intake Total 1166.9 / 1166.9 97.20 / 457.20 790.22 / 790.22 Output Total 250 / 250 0 / 0 Balance 916.9 / 916.9 97.20 / 457.20 790.22 / 790.22 Lab / Micro Data 07/22/24 06:30 07/22/24 06:30 Labs: Laboratory Results - last 24 hr 07/21/24 09:45: APTT 25.0 07/21/24 14:00: Hgb 13.1 07/22/24 00:00: APTT 115.5 H* 07/22/24 06:30: WBC 7.3, RBC 3.98 L, Hgb 12.6, Hct 37.2, MCV 93.5, MCH 31.7, MCHC 33.9, RDW Std Deviation 45.1 H, RDW Coeff of Mesfin 13.2, Plt Count 131 L, MPV 10.1, Immature Gran % (Auto) 0.100, Neut % (Auto) 60.4, Lymph % (Auto) 25.7, [place] % (Auto) 12.5 H, Eos % (Auto) 0.3, Baso % (Auto) 1.0, Absolute Neuts (auto) 4.4, Absolute Lymphs (auto) 1.87, Nucleated RBC % 0, Sodium 136, Potassium 3.8, Chloride 106, Carbon Dioxide 18.2 L, Anion Gap 12, BUN 8, Creatinine 0.72, Estim Creat Clear Calc 76.81, Est GFR (MDRD) Non-Af 95, BUN/Creatinine Ratio 10.5, Glucose 106 H, Calcium 8.1 Physical Exam Narrative Right lower extremity Motor: able to plantarflex and dorsiflex right foot Sensation: Intact throughout on the right foot. Vascular: 2+ Dorsalis pedis pulse on the right foot, warm and well perfused. Dressings: Removed today at bedside with nursing. Fasciotomy wounds on the medial and lateral leg are open and granulating. There is some surgical foam in the wounds but no muscle. No bleeding Likely adequate skin laxity for closure once some of the swelling decreases Assessment & Plan Assessment/Plan (1) Leg wound, right: PLAN: Discussed with patient the risk, benefits, and alternatives to delayed primary closure. Caprini score is 6 We particularly discussed the risk of infection with regards to closing wounds versus letting them heal by secondary intention or skin grafting. She understands plan for likely delayed primary closure, but possible skin grafting. Her decision as of now is for surgery for reconstruction of the wounds rather than dressing changes. Tentative plan for delayed primary closure in the operating room on Friday, 28 July 2024, for definitive treatment of the fasciotomy wounds. Plan for 3 times per week VAC changes until then. Continue anticoagulation per vascular surgery Charges/Coding Visit Charges Inpatient E&M: 01095 [facility] Hosp L1
[2024-07-22 08:36] LABS: Partial Thromboplast Time 35.1 Seconds (24.1-36.2)
[2024-07-22] MEDS: Aspirin E.C. 81 MG Tablet PO (08:44)
[2024-07-22] MEDS: 0.9% Saline Lock 10 ML Syringe IV (09:04)
[2024-07-22] MEDS: Heparin Injection (Vial) 5,000 UNIT/ML VIAL IV (09:18)
[2024-07-22 10:00] VITALS: BP 119/68; PULSE 75; RESP 16; TEMP 36.6; O2SAT 97
--- NOTE | 2024-07-22 11:58 | DCINST_ITS ---
Discharge Instructions Diet Discharge Diet: Low fat / Low cholesterol DC O2, CPAP, BIPAP needs Home O2 Discharge instructions: No Dressing / Incision Discharge Activity: Return to Normal Activity Dressing / Incision Call your doctor if your incision/area has: Continuous Slow Oozing and Increased Redness Call your doctor if you observe: Fever of 101 or Higher, Shortness of breath, Dizziness, Fainting spells, Swelling in the ankles, Chest pain and Increased palpitations (irregular heartbeat) Follow Up Care Test Results: Test results from this visit will be discussed in further detail at your follow- up appointment, if applicable. Discharge Plan Admission Admit Date/Time: 07/20/24 08:20 Attending Provider: Marcelino Waddell Primary Care Provider: Rigo Burns Consulting Providers: John Abbott; Paolo Phillips; Vikas Calvert Instructions Additional Instructions / Restrictions: May supplement pain management with Tylenol, would be cautious about ibuprofen as given your aspirin and possible Xarelto this can increase your bleeding risk slightly, it should not be an issue if you use ibuprofen sparingly but it can become a problem if you are using it consistently over the next couple of weeks. Discharge Orders/Prescriptions Prescriptions: New nicotine 14 mg/24 hr Patch 24 Hour 14 mg transdermal DAILY 30 Days Qty: 30 0RF aspirin 81 mg Tablet,Delayed Release (Dr/Ec) 81 mg PO BREAKFAST 30 Days Qty: 30 0RF oxycodone 5 mg Tablet 5 mg PO Q8H PRN PRN (Reason: Pain Score 4-10) 5 Days Qty: 20 0RF Xarelto 2.5 mg tablet 2.5 mg PO BID Qty: 60 0RF Continued rosuvastatin 10 mg tablet 10 mg PO DAILY Taltz Autoinjector 80 mg/mL auto-injector 80 mg SUBCUT .4 weeks Patient Comments: [NO ORIGINAL SIG], 07/18/2024 last dose Referrals / Follow Up: Rigo Burns MD [Primary Care Provider] - Within 1 Week John Abbott MD [Med Staff - Active Staff] - Within 2 Weeks Vikas Calvert MD [Med Staff - Active Staff] - Within 1 Week (Wound care Center on Friday for vac change) Disposition Disposition (needs filled in before D/C Order can be placed): Home, Self Care
--- NOTE | 2024-07-22 13:27 | CASEMGMT ---
Patient has order for discharge. RAMON FRANCO updated by wound nurse that patient will not need HHC at discharge as patient is to follow-up at [facility] wound center on Friday and then possible closure on Friday, HHC referrals canceled. Patient is discharging on rel, no copay. RAMON FRANCO in to discuss needs at discharge. Patient states she will need walker at home. Patient prefers [facility]. Patient declined further need or concerns. RAMON FRANCO sent referral to [employer] via [facility] and arranged for walker to be delivered to patient's room.
--- NOTE | 2024-07-22 14:11 | PCM.DC.SUM ---
Providers Date of Admission: 07/20/24 Primary Care Physician: Dr. 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 Routine Comment: Reason for Consult:: RLE fasciotomy sites Comments:: anticipate initiating wound vac tomorrow Consult: Plastic Surgery Routine Consulting Provider: Vikas Calvert Reason for Consult: RLE fasciotomy sites EMERGENT Consult: No MD Notified: Yes Date Notified: 07/21/24 Time Notified: 07:06 Method of Notification: Answering Service Reason For Visit: RLE ARTERIAL OCCULSION Diagnosis Discharge Diagnosis (1) Femoral artery thrombosis, right: Status: Acute Code(s): I74.3 - Embolism and thrombosis of arteries of the lower extremities (2) Acute occlusion of popliteal artery due to thromboembolism: Status: Acute Code(s): I74.3 - Embolism and thrombosis of arteries of the lower extremities Medications at Discharge Home Medications ixekizumab 80 mg/mL subcutaneous auto-injector (Taltz Autoinjector) 80 mg subcut .4 weeks psoriasis 07/20/24 rosuvastatin 10 mg tablet 10 mg PO DAILY 07/20/24 aspirin 81 mg tablet,delayed release 81 mg PO BREAKFAST 30 days #30 tabs 07/22/24 nicotine 14 mg/24 hr daily transdermal patch 14 mg transdermal DAILY 30 days #30 ea 07/22/24 oxycodone 5 mg tablet 5 mg PO Q8H PRN PRN Pain Score 4-10 5 days #20 tabs 07/22/24 rivaroxaban 2.5 mg tablet (Xarelto) 2.5 mg PO BID #60 tabs 07/22/24 Hospital Course Operations - (Right common femoral thromboendarterectomy with patch angioplasty; extensive endarterectomy onto the superficial femoral artery and profunda Right lower leg embolectomy via lower leg incision 4 compartment fasciotomy Sartorius flap) Procedures 2-D Echocardiogram Summary of Care Provided Minutes Spent on Discharge: 37 Hospital Course: Per HPI: RHEA EMANUEL, is a 59 F who presented to [facility] on 07/20/2024 with worsening right lower extremity pain. Patient reported intermittent right lower extremity pain with some numbness/tingling over the past few weeks. This morning around 5 AM she was awoken from sleep with a feeling of numbness in her right foot. When she went to put weight on the foot she had extreme pain, so she came in for further evaluation. In the ED she was found to have right lower extremity changes on exam concerning for acute arterial occlusion including coolness and pallor from the distal third of the mulligan down to the right foot/toes, skin mottled and pale, delayed capillary refill and no obvious dorsalis pedis or posterior tibial pulses. She was started on a heparin drip with some improvement in symptoms. CTA abdomen pelvis with runoff showed an acute occlusive thrombus involving the right common femoral/proximal femoral artery along with diminutive flow within the infrapopliteal arteries on the right side. Case was discussed with Dr. Abbott who plans to take the patient to surgery this afternoon. Hospitalist was then contacted for admission. I saw the patient at bedside in the ED, present. Patient was very pleasant and sitting up comfortably in bed, conversing normally and in no acute distress. She denied any right leg pain or discomfort currently, states that feels much improved from earlier today. Patient is a current smoker, smokes about 1/2 pack/day. Notes that she has been trying to wean down her amount of smoking recently and recently trialed Chantix but had significant nausea with this and stopped it about 2 weeks ago. She also has history of hyperlipidemia and has been on rosuvastatin 10 mg daily for the past 3 months. She is not on any other home medications. Denies any prior history of clots. No other acute concerns at this time. Hospital Course: 1. Right lower extremity acute arterial occlusion status post right common femoral thromboendarterectomy and 4 compartment fasciotomy ? Admit under inpatient status to PCU. Vascular surgery consulted. CTA abdomen pelvis with runoff showed an acute occlusive thrombus involving the right common femoral/proximal femoral artery along with diminutive flow in the infrapopliteal arteries on the right side. Started on heparin drip in the ED with improvement in pain, skin pallor and pulses. Plan was for urgent intervention with vascular surgery this afternoon, will follow-up on result. 07/21/2024: Awaiting evaluation by plastic surgery for her fasciotomies during her right lower extremity 07/22/2024: She is doing well today, she was able to have her dressings changed and a wound VAC placed on her incisions for fasciotomies, there is very little pain and she tolerated this well. I discussed with her the plan for discharge today and she expressed understanding of the risks and benefits of going home and would like to go home today. She will keep the back on until Friday where she will present to the wound care center to have it removed and then final closure of her fasciotomy wound on Friday. Given her I will endarterectomy in her right common femoral artery, she will be placed on aspirin daily as well as Xarelto 2.5 mg p.o. twice daily with outpatient follow-up to vascular surgery in 2 weeks. I also recommended she follow-up with her PCP next week as well for continued monitoring. Will provide her with some pain medication on discharge. 2. Hyperlipidemia ? Most recent lipid panel on 06/22 showed total cholesterol 235, LDL 118, HDL 78. Has been on rosuvastatin 10 mg daily at home. Will increase to rosuvastatin 40 mg daily at this time. 3. Tobacco use disorder ? Currently smoking about half pack of cigarettes per day. Nicotine patch ordered per patient request. Strongly encouraged cessation on discharge. Physical Exam Narrative General: Alert, Oriented x3, Cooperative, No apparent distress HEENT: Atraumatic, PERRLA, EOMI, Normocephalic Oral: Moist Mucosa Neck: Supple, No JVD Lungs: Diminished, Normal air movement, No rhonchi, No wheeze, No rales Cardiovascular: Regular rate, Regular Rhythm, Normal S1, Normal S2, No murmurs Abdomen: Soft, Non Tender, Non-Distended, No Hepato-splenomegaly Extremities: No edema, Capillary Refill Less than 3 Seconds Skin: No rashes, No breakdown Musculoskeletal: Some tenderness in her right lower extremity, dressing intact currently wrapped with wound VAC in place Neurological: No focal neurological deficits, Motor Exam 5/5 strength throughout, Sensory exam intact to light touch and pain Psych/Mental Status: Normal Affect, Appropriate Weight / BMI Weight Weight: 155 lb 6.814 oz Body Mass Index (BMI) 25.0 ABG / Lab / Microbiology Data 07/22/24 06:30 07/22/24 06:30 Laboratory: Laboratory Results - last 24 hr 07/22/24 00:00: APTT 115.5 H* 07/22/24 06:30: WBC 7.3, RBC 3.98 L, Hgb 12.6, Hct 37.2, MCV 93.5, MCH 31.7, MCHC 33.9, RDW Std Deviation 45.1 H, RDW Coeff of Mesfin 13.2, Plt Count 131 L, MPV 10.1, Immature Gran % (Auto) 0.100, Neut % (Auto) 60.4, Lymph % (Auto) 25.7, [place] % (Auto) 12.5 H, Eos % (Auto) 0.3, Baso % (Auto) 1.0, Absolute Neuts (auto) 4.4, Absolute Lymphs (auto) 1.87, Nucleated RBC % 0, Sodium 136, Potassium 3.8, Chloride 106, Carbon Dioxide 18.2 L, Anion Gap 12, BUN 8, Creatinine 0.72, Estim Creat Clear Calc 76.81, Est GFR (MDRD) Non-Af 95, BUN/Creatinine Ratio 10.5, Glucose 106 H, Calcium 8.1 07/22/24 07:10: APTT 35.1 D/C Instructions Discharge Diet: Low fat / Low cholesterol Call your doctor if your incision/area has: Continuous Slow Oozing and Increased Redness Call your doctor if you observe: Fever of 101 or Higher, Shortness of breath, Dizziness, Fainting spells, Swelling in the ankles, Chest pain and Increased palpitations (irregular heartbeat) DC O2, CPAP, BIPAP Needs Home O2 Discharge instructions: No Meaningful Use Info Meaningful Use Meaningful Use Diagnoses (Choose all that apply): None applicable Ischemic Stroke Statin Dosing Therapy Reference: STATIN DOSE THERAPY REFERENCE: * Patients > 75 years receive moderate or high dose statin therapy. * Patients 75 years or YOUNGER should receive HIGH intensity statin dose unless contraindicated. You will be required to document reason for non-treatment if statin daily dose does not meet guidelines. HIGH DOSE STATIN THERAPY DAILY Atorvastatin > than or = to 40 mg Rosuvastatin > than or = to 20 mg Amlodipine + Atorvastatin > than or = to 2.5/40 mg Ezetimibe + Simvastatin 10/80 mg Simvastatin 80mg Discharge Plan Admission Admit Date/Time: 07/20/24 08:20 Attending Provider: Kotsonis,Marcelino F Primary Care Provider: Rigo Burns Consulting Providers: John Abbott; Paolo Phillips; Vikas Calvert Instructions Additional Instructions / Restrictions: May supplement pain management with Tylenol, would be cautious about ibuprofen as given your aspirin and possible Xarelto this can increase your bleeding risk slightly, it should not be an issue if you use ibuprofen sparingly but it can become a problem if you are using it consistently over the next couple of weeks. Discharge Orders/Prescriptions Prescriptions: New nicotine 14 mg/24 hr Patch 24 Hour 14 mg transdermal DAILY 30 Days Qty: 30 0RF aspirin 81 mg Tablet,Delayed Release (Dr/Ec) 81 mg PO BREAKFAST 30 Days Qty: 30 0RF oxycodone 5 mg Tablet 5 mg PO Q8H PRN PRN (Reason: Pain Score 4-10) 5 Days Qty: 20 0RF Xarelto 2.5 mg tablet 2.5 mg PO BID Qty: 60 0RF Continued rosuvastatin 10 mg tablet 10 mg PO DAILY Taltz Autoinjector 80 mg/mL auto-injector 80 mg SUBCUT .4 weeks Patient Comments: [NO ORIGINAL SIG], 07/18/2024 last dose Referrals / Follow Up: John Abbott MD [Med Staff - Active Staff] - Within 2 Weeks Rigo Burns MD [Primary Care Provider] - Within 1 Week Vikas Calvert MD [Med Staff - Active Staff] - Within 1 Week (Wound care Center on Friday for vac change) Disposition Disposition (needs filled in before D/C Order can be placed): Home, Self Care Charges/Coding Visit Charges Inpatient E&M: 81753 Disch Hosp >30min
[2024-07-22 15:35] VITALS: BP 121/68; PULSE 76; RESP 18; TEMP 36.7; O2SAT 96
--- NOTE | 2024-07-22 16:03 | PHA.DC_ITS ---
Pharmacy [facility] Pharm[facility] Service has performed discharge medication reconciliation and counseling for this patient. 1. ASPIRIN 81MG PO DAILY 2. NICOTINE 14MG/DAY PATCH 1 PATCH TOPICAL DAILY 3. OXYCODONE 5MG PO Q8H PRN PAIN 4. RIVAROXABAN 2.5MG PO BID The patient's discharge medication list was reviewed for discrepancies and discrepancies were resolved. The patient was counseled on the following discharge medications and changes in medications for homegoing were reviewed. The Reason for Use, instructions for use, and potential side effects were reviewed for all new medications. The patient's questions regarding all of their medications were answered. The patient was able to verbally demonstrate an understanding of their discharge medications. Medications at Discharge Home Medications ixekizumab 80 mg/mL subcutaneous auto-injector (Taltz Autoinjector) 80 mg subcut .4 weeks psoriasis 07/20/24 rosuvastatin 10 mg tablet 10 mg PO DAILY 07/20/24 aspirin 81 mg tablet,delayed release 81 mg PO BREAKFAST 30 days #30 tabs 07/22/24 nicotine 14 mg/24 hr daily transdermal patch 14 mg transdermal DAILY 30 days #30 ea 07/22/24 oxycodone 5 mg tablet 5 mg PO Q8H PRN PRN Pain Score 4-10 5 days #20 tabs 07/22/24 rivaroxaban 2.5 mg tablet (Xarelto) 2.5 mg PO BID #60 tabs 07/22/24
== END 2024-07-22 15:50 | disposition home or self-care (01) | DRG 181 ==
LOC: ED 08:38 → ICU 08:44
PROVIDERS: Physician Assistant; Surgery Trauma Surgery; Admitting Provider Hospitalist; Emergency Provider Emergency Medicine; PCP Family Medicine; Visit Provider Family Medicine
PROC: 04CK0ZZ Extirpation of Matter from Right Femoral Artery, Open Approach (ICD-10-PCS; principal; 2024-07-20 13:15)
DX: I82.431 Acute embolism and thrombosis of right popliteal vein (principal); I74.3 Embolism and thrombosis of arteries of the lower extremities; E78.5 Hyperlipidemia, unspecified; F17.210 Nicotine dependence, cigarettes, uncomplicated; I82.811 Embolism and thrombosis of superficial veins of right lower extremity; I70.211 Atherosclerosis of native arteries of extremities with intermittent claudication, right leg
CPT/HCPCS: 36415; 75635; 80048; 83605; 85018; 85025; 85610; 85730; 88302; 88304; 88311; 93005; 93306; 94668; 94762; 97162; 97166; 97802; 99252; 99285; 99406; A4648; Q9967; A4216; C1757; G0463; J2405

== ENCOUNTER 2024-07-28 05:48 | Day surgery (SDC) | payer MEDICAID, SELFPAY ==
--- NOTE | 2024-07-26 16:35 | PAT.ANESEVAL ---
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 When Was Last Pacemaker Check QUESTION #4 FULL TEXT: You/Your Family Experience fever (hyperthermia) with Anesthesia Last Oral Intake Last Oral intake: Last Oral Intake NPO since Meds taken in AM with sips of water? 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 Female Yes 07/26/24 08:26 HX of Motion Sickness No 07/26/24 08:26 HX of N/V After Surgery No 07/26/24 08:26 Non-Smoker Yes 07/26/24 08:26 Duration of Surgery greater Yes 07/26/24 08:26 than 60 minutes Number of Risk Factors 3 07/26/24 08:26 PONV Score Moderate Risk 07/26/24 08:26 Height & Weight Height & Weight: Anesthesia: Height & Weight Height 5 ft 6.14 in 07/21/24 10:13 Respiratory Assessment Respiratory Assessment - grinding and polishing laborer: Respiratory Tract Infection Hx - grinding and polishing laborer Hx Respiratory Tract Infection No 07/26/24 08:26 STOP Sleep Apnea STOP Sleep Apnea - grinding and polishing laborer: STOP Sleep Apnea - grinding and polishing laborer Hx Hypertension No 07/26/24 08:26 Hx Sleep Apnea No 07/26/24 08:26 CPAP BIPAP Do you snore loudly (louder No 07/26/24 08:26 than talking or can be heard Do you often feel tired/ No 07/26/24 08:26 fatigued/ sleepy during daytime? Has anyone observed you stop No 07/26/24 08:26 breathing during sleep? STOP Results Negative 07/26/24 08:26 QUESTION #5 FULL TEXT : Do you snore loudly (louder than talking or can be heard through closed doors)? 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 Specify any problems Hx of Preganancy in last 3 N/A 07/26/24 08:26 Months Nurse Filling Out Transfusion NBUCHER 07/26/24 08:26 & Questions: Date: 07/26/24 07/26/24 08:26 Time: 08:27 07/26/24 08:26 Patient unable to answer at this time (ie. confused, unrespo /Reproduction History /Reproductive History - grinding and polishing laborer: /Reproductive Hx- grinding and polishing laborer Hx Now No 07/26/24 08:26 Gestational Age (in weeks): EDC: Hx Hx Para Hx Section SAB No 07/26/24 08:26 PFSH Medical History PAD (peripheral artery disease) Open wound High cholesterol DVT (deep venous thrombosis) Shortness of breath on exertion Former smoker History of stress test History of echocardiogram Hyperlipemia Smoker Home Medications ?Medication ?Instructions ?Recorded ?Last Taken ?Type ixekizumab 80 mg/mL subcutaneous 80 mg subcut QMONTH psoriasis 07/20/24 Unknown History auto-injector (Taltz Autoinjector) rosuvastatin 10 mg tablet 10 mg PO DAILY 07/20/24 Unknown History aspirin 81 mg tablet,delayed 81 mg PO BREAKFAST 30 days #30 tabs 07/22/24 Unknown Rx release nicotine 14 mg/24 hr daily 14 mg transdermal DAILY 30 days 07/22/24 Unknown Rx transdermal patch #30 ea rivaroxaban 2.5 mg tablet (Xarelto) 2.5 mg PO BID #60 tabs 07/22/24 Unknown Rx oxycodone 10 mg tablet 10 mg PO Q8H PRN pain 7 days #21 07/23/24 Unknown Rx tabs Allergy/AdvReac Type Severity Reaction Status Date / Time No Known Allergies Allergy Verified 07/26/24 09:18 Surgical History History of D&C History of femoropopliteal bypass (07/20/24) Social History Smoking Status: Current every day smoker tobacco type: cigarettes Audit: Pertinent Findings Pertinent Findings EKG Perinent findings: July 20, 2024. Normal sinus rhythm. Echo (EF%) pertinent findings: July 20, 2024. Ejection fraction 60%. There is no aortic stenosis. Recommendation Anesthesia Recommendation Anesthesia recommendation: OPTIMIZED for anesthesia
[2024-07-28] VITALS (11 sets, daily range): BP systolic 119–133; BP diastolic 58–87; PULSE 79–90; RESP 14–16; TEMP 36.3–37.1; O2SAT 96–99; BMI 25.0
[2024-07-28] MEDS: 0.9% Normal Saline (1000mL) 1,000 ML 15 ML IV (06:27)
--- NOTE | 2024-07-28 07:09 | PRE.ANES_ITS ---
ASA Classification* ASA Classification ASA Classification: 2 Assessment & Plan Anesthesia* Anesthesia Assessment Anesthesia Assessment: Discussed sedation and/or anesthesia options, risks, benefits, and alternatives with patient/parents/legal guardian/POA. Questions invited. The patient/parents/legal guardian/POA seems to understand and agrees to proceed with anesthesia plan. Reviewed the physical assessment, medical history, allergy history and patient home medications list prior to surgery/procedure/anesthetic and documented any changes. Performed airway and anesthesia risk assessments. Anesthesia Type Anesthesia Type: General History Source History Obtained from:: Patient and Chart Anesthesia Focused Assessment* Temperature: 98.6 F Pulse Rate: 79 Blood Pressure: 125/58 Respiratory Rate: 16 Pulse Ox: 96 Oxygen Delivery Method: Room Air Airway Assessment Mouth opens: >3 cm Mallampati Score: III Teeth Condition: Missing (Patient has one left lower molar missing. Rest of the teeth are tight.) Neck Range of motion (ROM): Full ROM Focused Labs Anesthesia Preop lab: CBC WBC 7.3 K/mm3 (4.4-11.0) 07/22/24 06:30 07/22/24 RBC 3.98 M/mm3 (4.2-5.4) L 07/22/24 06:30 07/22/24 Hgb 12.6 g/dL (12.0-15.0) 07/22/24 06:30 07/22/24 Hct 37.2 % (37-47) 07/22/24 06:30 07/22/24 Plt Count 131 K/mm3 (150-450) L 07/22/24 06:30 07/22/24 CHEMISTRY Potassium 3.8 mmol/L (3.3-5.1) 07/22/24 06:30 07/22/24 Sodium 136 mmol/L (133-145) 07/22/24 06:30 07/22/24 BUN 8 mg/dL (4-19) 07/22/24 06:30 07/22/24 Creatinine 0.72 mg/dL (0.70-1.20) 07/22/24 06:30 07/22/24 Glucose 106 mg/dL (70-99) H 07/22/24 06:30 07/22/24 TSH 1.11 uIU/mL (0.358-3.74) 01/17/23 10:38 COAG PT 12.4 SECONDS (11.7-14.9) 07/20/24 06:57 Pre-Assessment Diagnosis/Proposed Procedure Planned Operative Procedure(s): (R) Debridement and skin graft right leg Anesthesia History 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 When Was Last Pacemaker Check QUESTION #4 FULL TEXT: You/Your Family Experience fever (hyperthermia) with Anesthesia Last Oral Intake Last Oral intake: Last Oral Intake NPO since 00:00 07/28/24 06:23 Meds taken in AM with sips of No 07/28/24 06:23 water? 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 Female Yes 07/26/24 08:26 HX of Motion Sickness No 07/26/24 08:26 HX of N/V After Surgery No 07/26/24 08:26 Non-Smoker Yes 07/26/24 08:26 Duration of Surgery greater Yes 07/26/24 08:26 than 60 minutes Number of Risk Factors 3 07/26/24 08:26 PONV Score Moderate Risk 07/26/24 08:26 Height & Weight Height & Weight: Anesthesia: Height & Weight Height 5 ft 6 in 07/28/24 06:23 Weight: 70.307 kg 07/28/24 06:23 Body Mass Index (BMI) 25.0 07/28/24 06:23 Respiratory Assessment Respiratory Assessment - senior construction project manager: Respiratory Tract Infection Hx - senior construction project manager Hx Respiratory Tract Infection No 07/26/24 08:26 Any additional information?: Yes Hx Respiratory Tract Infection: Yes (Patient has chronic cough.) STOP Sleep Apnea STOP Sleep Apnea - senior construction project manager: STOP Sleep Apnea - senior construction project manager Hx Hypertension No 07/26/24 08:26 Hx Sleep Apnea No 07/26/24 08:26 CPAP BIPAP Do you snore loudly (louder No 07/26/24 08:26 than talking or can be heard Do you often feel tired/ No 07/26/24 08:26 fatigued/ sleepy during daytime? Has anyone observed you stop No 07/26/24 08:26 breathing during sleep? STOP Results Negative 07/26/24 08:26 QUESTION #5 FULL TEXT : Do you snore loudly (louder than talking or can be heard through closed doors)? 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 Specify any problems Hx of Preganancy in last 3 N/A 07/26/24 08:26 Months Nurse Filling Out Transfusion NBUCHER 07/26/24 08:26 & Questions: Date: 07/26/24 07/26/24 08:26 Time: 08:27 07/26/24 08:26 Patient unable to answer at this time (ie. confused, unrespo /Reproduction History /Reproductive History - senior construction project manager: /Reproductive Hx- senior construction project manager Hx Now No 07/26/24 08:26 Gestational Age (in weeks): EDC: Hx Hx Para Hx Section SAB No 07/26/24 08:26 Active Medications Active Medications: Current Medications Generic Name Dose Route Start Last Admin Trade Name Freq PRN Reason Stop Dose Admin Cefazolin Sodium 2 gm/ N/A 20 mls @ 400 mls/hr 07/28/24 07:30 IV 07/28/24 07:32 PREOP ONE Sodium Chloride 1,000 mls @ 15 mls/hr 07/28/24 06:05 07/28/24 06:27 IV 15 mls/hr .Q48H RENATA Administration PFSH Medical History PAD (peripheral artery disease) Open wound High cholesterol DVT (deep venous thrombosis) Shortness of breath on exertion Former smoker History of stress test History of echocardiogram Hyperlipemia Smoker Home Medications ?Medication ?Instructions ?Recorded ?Last Taken ?Type ixekizumab 80 mg/mL subcutaneous 80 mg subcut QMONTH p soriasis 07/20/24 Unknown History auto-injector (Taltz Autoinjector) rosuvastatin 10 mg tablet 10 mg PO DAILY 07/20/2407/10 History aspirin 81 mg tablet,delayed 81 mg PO BREAKFAST 30 day s #30 tabs 07/22/24 07/27/24 Rx release nicotine 14 mg/24 hr daily 14 mg transdermal DAILY 30 days 07/22/24 07/28/24 Rx transdermal patch #30 ea rivaroxaban 2.5 mg tablet (Xarelto) 2.5 mg PO BID #60 tabs 07/22/24 07/27/24 Rx oxycodone 10 mg tablet 10 mg PO Q8H PRN pain 7 days #21 07/23/24 07/27/24 Rx tabs Allergy/AdvReac Type Severity Reaction Status Date / Time No Known Allergies Allergy Verified 07/26/24 09:18 Surgical History History of D&C History of femoropopliteal bypass (07/20/24) Social History Smoking Status: Current every day smoker tobacco type: cigarettes Review of Systems (Anesthesia) ROS Narrative System reviewed and no additional complaints, except as documented.
--- NOTE | 2024-07-28 07:34 | PCM.HP.STD ---
HPI - General HPI Narrative RHEA EMANUEL, is a 59 F who presents with right lower extremity fasciotomy wounds. Current Encounter (DATE OF SURGERY H&P UPDATE): I saw and examined the patient this morning in pre-operative holding. We discussed risks and benefits of today's surgery and they would like to proceed. NO CHANGE in health history since last seen and evaluated. Ready to proceed with surgery. PFSH Medical History PAD (peripheral artery disease) Open wound High cholesterol DVT (deep venous thrombosis) Shortness of breath on exertion Former smoker History of stress test History of echocardiogram Hyperlipemia Smoker Home Medications ?Medication ?Instructions ?Recorded ?Last Taken ?Type ixekizumab 80 mg/mL subcutaneous 80 mg subcut QMONTH psoriasis 07/20/24 Unknown History auto-injector (Taltz Autoinjector) rosuvastatin 10 mg tablet 10 mg PO DAILY 07/20/24 07/27/24 History aspirin 81 mg tablet,delayed 81 mg PO BREAKFAST 30 days #30 tabs 07/22/24 07/27/24 Rx release nicotine 14 mg/24 hr daily 14 mg transdermal DAILY 30 days 07/22/24 07/28/24 Rx transdermal patch #30 ea rivaroxaban 2.5 mg tablet (Xarelto) 2.5 mg PO BID #60 tabs 07/22/24 07/27/24 Rx oxycodone 10 mg tablet 10 mg PO Q8H PRN pain 7 days #21 07/23/24 07/27/24 Rx tabs Allergy/AdvReac Type Severity Reaction Status Date / Time No Known Allergies Allergy Verified 07/26/24 09:18 Surgical History History of D&C History of femoropopliteal bypass (07/20/24) Social History Smoking Status: Current every day smoker tobacco type: cigarettes Vital Signs Vital Signs Vital Signs: 07/28/24 06:18 07/28/24 06:23 07/28/24 07:16 Temperature 98.6 F 98.6 F Temperature Source Temporal Pulse Rate 79 79 Respiratory Rate 16 16 Respiratory Pattern Normal Blood Pressure 125/58 H 125/58 H Blood Pressure Mean 80 Blood Pressure Source Monitor Blood Pressure Position Semi-Fowlers Blood Pressure Location Right Arm Pulse Ox 96 96 Oxygen Delivery Method Room Air Room Air Weight Weight: 155 lb Body Mass Index (BMI) 25.0 Physical Exam Narrative Right lower extremity Motor: able to plantarflex and dorsiflex right foot Sensation: Intact throughout on the right foot. Vascular: 2+ Dorsalis pedis pulse on the right foot, warm and well perfused. INSPECTION: Fasciotomy wounds on the medial and lateral leg WITH vac in place holding suction Assessment & Plan Assessment/Plan (1) Leg wound, right: PLAN: Discussed with patient the risk, benefits, and alternatives to delayed primary closure. Caprini score is 6 We particularly discussed the risk of infection with regards to closing wounds versus letting them heal by secondary intention or skin grafting. She understands plan for likely delayed primary closure, but possible skin grafting. Her decision as of now is for surgery for reconstruction of the wounds rather than dressing changes. Tentative plan for delayed primary closure in the operating room on Friday, 28 July 2024, for definitive treatment of the fasciotomy wounds. Plan for 3 times per week VAC changes until then. Continue anticoagulation per vascular surgery INTERVAL H&P PLAN, DATE OF SURGERY: We will proceed with surgery today.
[2024-07-28] MEDS: Cefazolin 2 GM in Syringe IV (07:45)
[2024-07-28] MEDS: Lidocaine 1% /Epi 1:100 (20ml) 20 ML Vial (07:56)
[2024-07-28] MEDS: Bupiv/Epi 0.25% 30 ML Vial (07:56)
[2024-07-28] MEDS: Epinephrine (1 mg/ml) 1 MG/ML VIAL (08:05)
--- NOTE | 2024-07-28 08:51 | PCM.POST.ANE ---
Anesthesia: Postop Eval I Current Vital Signs Temperature: 98 F Pulse Rate: 90 Blood Pressure: 127/72 Respiratory Rate: 14 Pulse Ox: 97 Oxygen Delivery Method: Room Air Assessment Airway patent: Yes Spontaneous unlabored respirations: Yes Mental status: Awake nausea: No Vomiting: No Anesthesia Complication: No Fluid Hydration Crystalloid volume administer (ml): 1,400 Total IV fluid infused: 1,400 Progress Note Anesthesia document: Postop Eval 1 completed: Yes
[2024-07-28] MEDS: Acetaminophen 325 MG Tablet 650 MG PO (10:07)
[2024-07-28] MEDS: oxyCODONE 5 MG Tablet 10 MG PO (10:07)
--- NOTE | 2024-07-28 13:33 | POSTOPAN2_ITS ---
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.HBARR Spontaneous unlabored Yes 07/28/24 08:52 SPRUE CUTTING PRESS OPERATOR.HBARR respirations Mental status Awake 07/28/24 08:52 SPRUE CUTTING PRESS OPERATOR.HBARR nausea No 07/28/24 08:52 SPRUE CUTTING PRESS OPERATOR.HBARR Vomiting No 07/28/24 08:52 SPRUE CUTTING PRESS OPERATOR.HBARR Anesthesia Postop Eval I: Fluid Summary Crystalloid volume administer 1,400 07/28/24 08:52 SPRUE CUTTING PRESS OPERATOR.HBARR (ml) Colloids volume administered ( ml) Blood Product volume administered (ml) Total IV fluid infused 1,400 07/28/24 08:52 SPRUE CUTTING PRESS OPERATOR.HBARR Anesthesia Postop Eval I: Summary Notes Anesthesia Complication No 07/28/24 08:52 SPRUE CUTTING PRESS OPERATOR.HBARR Anesthesia Complication Comment: Post-operative progress note Anesthesia: Postop Eval II Evaluation Mental status: Awake Pain Level: 2 nausea: No Vomiting: No
--- NOTE | 2024-07-28 13:33 | PCM.POSTANE2 ---
Anesthesia Postop Eval I Sum Postop Eval Completion status Anesthesia document: Postop Eval 1 completed: Yes Anesthesia Postop Eval I Summary Anesthesia Postop Eval I Summary: Anesthesia Postop Eval I: Assessment Summary Airway patent Yes 07/28/24 08:52 FISH ROE TECHNICIAN.HBARR Spontaneous unlabored Yes 07/28/24 08:52 FISH ROE TECHNICIAN.HBARR respirations Mental status Awake 07/28/24 08:52 FISH ROE TECHNICIAN.HBARR nausea No 07/28/24 08:52 FISH ROE TECHNICIAN.HBARR Vomiting No 07/28/24 08:52 FISH ROE TECHNICIAN.HBARR Anesthesia Postop Eval I: Fluid Summary Crystalloid volume administer 1,400 07/28/24 08:52 FISH ROE TECHNICIAN.HBARR (ml) Colloids volume administered ( ml) Blood Product volume administered (ml) Total IV fluid infused 1,400 07/28/24 08:52 FISH ROE TECHNICIAN.HBARR Anesthesia Postop Eval I: Summary Notes Anesthesia Complication No 07/28/24 08:52 FISH ROE TECHNICIAN.HBARR Anesthesia Complication Comment: Post-operative progress note Anesthesia: Postop Eval II Evaluation Mental status: Awake Pain Level: 2 nausea: No Vomiting: No
--- NOTE | 2024-07-28 15:00 | OP.PCM_ITS ---
Operative Report (Standard) Operative Information Date of Procedure: 07/28/24 Pre-Operative Diagnosis: Right leg medial and lateral fasciotomy wounds Post-Operative Diagnosis: Same Surgery/Procedure Performed: 1) Delayed closure of fasciotomy wounds, right medial leg 15 x 3.5 cm, right lateral leg 15 x 4 cm (CPT 14397) skull splitter: Yes Catalogue Librarian: Elisabet Claudio Tasks completed by business office assistant: Closing and Retracting Type of Anesthesia: General/Supplemental (with 20 cc of 0.25% Marcaine with 1:200,000 epinephrine ) RN Documented Start/Stop Times: Operation Date: 07/28/24 07:30 Case Time Into Pre-Op 07/28/24 06:01 Out of Pre-Op 07/28/24 07:35 Anesthesia Start 07/28/24 07:39 Into Room 07/28/24 07:39 Procedure Start 07/28/24 07:56 Procedure End 07/28/24 08:31 Anesthesia End 07/28/24 08:37 Out of Room 07/28/24 08:37 Into Recovery 07/28/24 08:40 Out of Recovery 07/28/24 09:40 Into Phase II Recovery 07/28/24 09:42 Out of Phase II 07/28/24 11:14 Procedure Start Time: 07:56 Procedure Stop Time: 08:31 Select all DRAINS/GRAFTS/IMPLANTS that apply: None Estimated Blood Loss: 20 cc Specimen collected: No Description of surgery: Indications: Dhara Nina is a delightful 59-year-old female with recent emergent vascular intervention for an ischemic right lower extremity which included right leg fasciotomies (medial and lateral incisions). She presents today for delayed primary closure as the incisions were left open secondary to swelling. I talked to the patient extensively about the risks, benefits, and alternatives to the procedure, and she elected to proceed. Procedure details: Patient was correctly identified in preoperative holding and marked. She was taken back to the operating room where she was administered general anesthesia and she was prepped and draped in sterile fashion. All proper timeouts were performed. The medial and lateral fasciotomy wounds were excised with a curette sharply. Necrotic biofilm and hypertrophic granulation tissue as well as Surgifoam remnants were excised. The medial wound was 15 x 3.5 cm in the lateral wound was 15 x 4 cm. The wounds were then both irrigated with a separate bottle of Irrisept. 3 L of normal saline was then used to washout both wounds. Hemostasis was obtained with Bovie electrocautery. Closure was then performed with deep Kelly's fascia and deep dermis 2-0 PDS sutures followed by deep dermal 3-0 Monocryl sutures and a running subcuticular 3-0 Monocryl suture. Prineo tape was applied. The patient was awakened and taken to the PACU in stable condition. She tolerated the procedure well without any immediate postoperative complications. Postoperative plan: Patient will follow-up with the wound care center on 02 August 2024 for wound check. Surgical Findings: Healthy wound bed following excision of the biofilm and hypertrophic granulation tissue. Ready for closure. No signs of infection. Healthy/viable muscle. Complications Complications: No Admit VTE Documentation VTE Mechan Device Prophylaxis: SCD's
== END 2024-07-28 11:14 | disposition home or self-care (01) ==
LOC: SDC 05:50 → AC 05:51
PROVIDERS: PCP Family Medicine; Referring Provider Surgery Plastic and Reconstructive Surgery; Visit Provider Surgery Plastic and Reconstructive Surgery
PROC: (CPT 13160; principal; 2024-07-28 07:15)
DX: T81.89XA Other complications of procedures, not elsewhere classified, initial encounter (principal); Z79.01 Long term (current) use of anticoagulants; E78.00 Pure hypercholesterolemia, unspecified; Z79.82 Long term (current) use of aspirin; Z86.718 Personal history of other venous thrombosis and embolism; F17.210 Nicotine dependence, cigarettes, uncomplicated; Y83.8 Other surgical procedures as the cause of abnormal reaction of the patient, or of later complication, without mention of misadventure at the time of the procedure; Z79.899 Other long term (current) drug therapy
CPT/HCPCS: 13160; 00400; J2405

== ENCOUNTER 2024-08-02 09:15 | Outpatient (RCR) | payer MEDICAID, SELFPAY ==
[2024-07-26 09:00] VITALS: BP 145/73; PULSE 77; RESP 16; TEMP 36.2; BMI 25.0
--- NOTE | 2024-07-26 09:18 | HP.PCM_ITS ---
History of Present Illness Date of Service: 07/26/24 Chief Complaint: Right leg fasciotomy wounds History of Wound: HPI from surgical consultation on 21 July 2024: So Nina is a 59 YO female with a past medical history of acute occlusion of the right popliteal artery 2/2 thrpombosis who is post-op day 1 from right the following: Right common femoral thromboendarterectomy with patch angioplasty; extensive endarterectomy onto the superficial femoral artery and profunda. Right lower leg embolectomy via lower leg incision with 4 compartment fasciotomy and a right groin Sartorius flap. Plastics has been consulted for right lower extremity fasciotomy wounds, which were left open following yesterday's intervention 2/2 swelling. Patient is a smoker. She reports some pain in the right lower extremity, but tolerated this morning's dressing change. Plan was for dressing changes followed by wound VAC changes 3 times weekly and delayed primary closure on 28 July 2024. Current encounter, wound care center 26 July 2024: Patient doing well after being discharged on , 22 July 2024. She was discharged on wound VAC changes and has been doing well. Pain is controlled and foot is warm. She has quit smoking. [facility] Medical History PAD (peripheral artery disease) Open wound High cholesterol DVT (deep venous thrombosis) Shortness of breath on exertion Former smoker History of stress test History of echocardiogram Hyperlipemia Smoker Home Medications ?Medication ?Instructions ?Recorded ?Last Taken ?Type ixekizumab 80 mg/mL subcutaneous 80 mg subcut QMONTH p soriasis 07/20/24 Unknown History auto-injector (Taltz Autoinjector) rosuvastatin 10 mg tablet 10 mg PO DAILY 07/20/24 Unkn own History aspirin 81 mg tablet,delayed 81 mg PO BREAKFAST 30 day s #30 tabs 07/22/24 Unknown Rx release nicotine 14 mg/24 hr daily 14 mg transdermal DAILY 30 days 07/22/24 Unknown Rx transdermal patch #30 ea rivaroxaban 2.5 mg tablet (Xarelto) 2.5 mg PO BID #60 tabs 07/22/24 Unknown Rx oxycodone 10 mg tablet 10 mg PO Q8H PRN pain 7 days #21 07/23/24 Unknown Rx tabs Allergy/AdvReac Type Severity Reaction Status Date / Time No Known Allergies Allergy Verified 07/26/24 09:18 Surgical History History of D&C History of femoropopliteal bypass (07/20/24) Social History Smoking Status: Current every day smoker tobacco type: cigarettes Vital Signs Vital Signs Vital Signs: 07/26/24 09:00 Temperature 97.2 F L Temperature Source Temporal Pulse Rate 77 Respiratory Rate 16 Blood Pressure 145/73 H Blood Pressure Mean 97 Blood Pressure Source Monitor Blood Pressure Position Sitting Blood Pressure Location Right Arm Oxygen Delivery Method Room Air Weight Weight: 155 lb Body Mass Index (BMI) 25.0 Physical Exam Narrative Right lower extremity Motor: able to plantarflex and dorsiflex right foot Sensation: Intact throughout on the right foot. Vascular: 2+ Dorsalis pedis pulse on the right foot, warm and well perfused. INSPECTION: Fasciotomy wounds on the medial and lateral leg are open and granulating. There is some surgical foam in the wounds but no muscle. No bleeding Likely adequate skin laxity for closure. There is viable muscle at the base Debridement Note Debridement Note No debridement was completed: No debridement was completed today Post-Debridement Measurements and Additional Note: Post-Debridement Measurements/Treatment - Nurse 1 - General Ulcer Assessment Start: 07/26/24 09:00 Freq: Status: Active Protocol: VIVEK.MONIQUE Activity Type Activity Date Activity User E-sign Co-sign Detail Recorded Client Recorded Date Recorded By Document 07/26/24 09:00 [facility] [id number] 07/26/24 09:16 [facility] 07/26/24 09:00 - Today's Visit Information Type of service Initial Visit Arrival Mode Wheelchair Transfer Assistance None Accompanied by and son Patient Identification Verified (Name & Yes ) Patient Requires Transmission-Based No Precautions Height and Weight Height 5 ft 6 in Weight 155 lb Weight in Pounds 155.0 lbs Weight Measurement Method Estimated by Patient Body Mass Index (BMI) 25.0 BMI Classification Overweight Vital Signs Temperature (97.8 F-99.1 F) 97.2 F L Temperature Source Temporal Pulse Rate (60-100) 77 Pulse Location Monitor Respiratory Rate (12-18) 16 Respiratory rate source Observation Oxygen Delivery Method Room Air Blood Pressure (90/60-120/80) 145/73 H Blood Pressure Mean (mm Hg) 97 Source Monitor Position Sitting Blood Pressure Location Right Arm History Since Last Visit- (Skip if this is Patient's initial visit) Left Footwear Regular Shoe Right Footwear Regular Shoe Pain Scale: 0-10 Numeric Is Patient Pain Free? Yes Communication Assessment Preferred language Citizen Of [place] Able to Read Yes Able to Write Yes Communication Tools None Right Hearing Abillity Normal Left Hearing Abillity Normal Visual Assistive Devices Glasses Teaching Assessment Preferences Verbal,Written, Audio/Visual, Demonstration Barriers to Learning None Readiness To Learn Excellent Willingness to Engage in Self Management High Activies Readiness to Engage in Self Management High Activities Anxiety Level Calm Cooperation Cooperative Perception Coherent Interest in Health Problem Asks Questions Education Importance Acknowledges Need Does Patient Smoke tobacco or other No substances Smoking Status Current every day smoker Is Patient Diabetic No Functional Assessment Recent Decline in Ability to Perform Ambulation, Lower Body Dressing, 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 Cultural/Hindu Needs that may affect No Treatment Plan Teaching: Wound Center *Welcome to the Wound Center -Person Taught Patient,Family -Teaching Method Discussion -Response to teaching Verbalize Understanding WC - Nurse 1 - General Ulcer Measurement Start: 07/26/24 09:00 Freq: Status: Active Protocol: Activity Type Activity Date Activity User E-sign Co-sign Detail Recorded Client Recorded Date Recorded By Document 07/26/24 09:00 [facility] [id number] 07/26/24 09:16 [facility] 07/26/24 09:00 Wound Center Nurse 1 #2 RLE MEDIAL -Combined with other wound No -Current Size (cm) - Length 16.2 -Current Size (cm) - Width 2.9 -Current Size (cm) - Depth 1.1 -Total Square Cm 46.98 -Photo Taken Yes -Epithelialization Medium 34-66% -Exudate Amt Medium -Exudate Type Serosanguineous -Wound Margin Distinct, Outline Attached -Granulation Amt Medium (34-66%) -Necrosis Amt Medium (34-66%) -Texture (Roslyn-wound Skin Appearance) Assessed -Moisture ([place]-wound Skin Appearance) No Abnormality -Color ([place]-wound Skin Appearance) Assessed -Temperature ([place]-wound Skin No Abnormality Appearance) (Pt Warm) -Ulcer Cleansing Soap and Water -Foul Odor after Cleansing No -Anesthetic Used 4% Lidocaine Solution #1 RLE LATERAL -Current Size (cm) - Length 16 -Current Size (cm) - Width 3.5 -Current Size (cm) - Depth 108 -Total Square Cm 56.0 -Epithelialization Medium 34-66% -Undermining/Tunneling Yes -Undermining/Tunneling Starts (O'clock 6 ) -Undermining/Tunneling Ends (O'clock) 11 -Maximum Distance (cm) 0.7 -Necrosis Amt Medium (34-66%) -Structure Exposed Tendon -Texture (Roslyn-wound Skin Appearance) Assessed -Moisture (Roslyn-wound Skin Appearance) Assessed -Color ([place]lyn-wound Skin Appearance) Assessed -Temperature ([place]-wound Skin No Abnormality Appearance) (Pt Warm) -Ulcer Cleansing Soap and Water -Foul Odor after Cleansing No -Anesthetic Used 4% Lidocaine Solution Right Calf (cm) 32.7 Right Ankle (cm) 19.5 Charges/Coding Visit Charges Office Visits / Consults: [id number] OV L4 Est 30min Assessment/Plan Assessment/Plan (1) Leg wound, right: CODE(S): S81.801A - Unspecified open wound, right lower leg, initial encounter PLAN: Plan Discussed with patient the risk, benefits, and alternatives to delayed primary closure. Caprini score is 6 Furthermore I talked the patient extensively about the risks of surgery, including bleeding, infection, damage to surrounding structures, surgical site dehiscence and wound formation, poor scaring, need for wound care, need for repeat operations, failure to obtain the desired result, DVT/PE, and the risks of anesthesia including , including stroke (from low blood pressure/ischemia or clot). The benefits and alternatives of this surgery were also discussed. All of their questions were answered, and they agreed to proceed with surgery. We particularly discussed the risk of infection with regards to closing wounds versus letting them heal by secondary intention or skin grafting. She understands plan for likely delayed primary closure, but possible skin grafting. Her decision as of now is for surgery for reconstruction of the wounds rather than dressing changes. Tentative plan for delayed primary closure in the operating room on Friday, 28 July 2024, for definitive treatment of the fasciotomy wounds. Plan for VAC until then (replaced today at the wound care center). Continue anticoagulation per vascular surgery
--- NOTE | 2024-07-27 09:26 | WC ---
07/26/24 Simone [facility]
--- NOTE | 2024-07-27 09:28 | WC ---
07/26/24 R DAMIÁN [facility]
[2024-08-02 09:06] VITALS: BP 135/67; PULSE 78; RESP 16; TEMP 36.8; BMI 25.0
--- NOTE | 2024-08-02 10:12 | PN.PCM_ITS ---
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 Right lower leg embolectomy via lower leg incision with 4 compartment fasciotomy and a right groin Sartorius flap. Plastics has been consulted for right lower extremity fasciotomy wounds, which were left open following yesterday's intervention 2/2 swelling. Patient is a smoker. She reports some pain in the right lower extremity, but tolerated this morning's dressing change. Plan was for dressing changes followed by wound VAC changes 3 times weekly and delayed primary closure on 28 July 2024. Wound care center 26 July 2024: Patient doing well after being discharged on , 22 July 2024. She was discharged on wound VAC changes and has been doing well. Pain is controlled and foot is warm. She has quit smoking. Subjective Subjective Current encounter, 02 August 2024: Post op week 1 from delayed primary closure of RLE fasciotomy wounds. Doing well overall. No fevers or chills. Slight rash on abdomen, possibly from new electrolyte powder (started yesterday and has not been getting any worse). Finished antibiotics today. Continuing to take anticoagulation/antiplatelet. Objective Data Objective Data Vital Signs: Vital Signs Temp Pulse Resp BP O2 Del Method 98.3 F 78 16 135/67 H Room Air 08/02/24 09:06 08/02/24 09:06 08/02/24 09:06 08/02/24 09:06 08/02/24 09:06 Oxygen Delivery Method Room Air Weight: 155 lb Body Mass Index (BMI) 25.0 Charges/Coding Procedures Integumentary 111xxx-113xx: [id number] Global Visit Physical Exam Narrative Right lower extremity Motor: able to plantarflex and dorsiflex right foot Sensation: Intact throughout on the right foot. Vascular: 2+ Dorsalis pedis pulse on the right foot, warm and well perfused. INSPECTION: Fasciotomy wound incisions closed, C/D/I. Expected swelling. No induration or swelling. No fluid collections. Healing well. Prineo tape in place. Debridement Note Debridement Note No debridement was completed: No debridement was completed today Post-Debridement Measurements and Additional Note: Post-Debridement Measurements/Treatment - Nurse 1 - General Ulcer Assessment Start: 07/26/24 09:00 Freq: Status: Active Protocol: WC.LOWJAIMET Activity Type Activity Date Activity User E-sign Co-sign Detail Recorded Client Recorded Date Recorded By Document 07/26/24 09:00 [facility] [id number] 07/26/24 09:16 BM Document 08/02/24 09:06 [facility] [id number] 08/02/24 09:13 BMF 07/26/24 08/02/24 09:00 09:06 WC - Today's Visit Information Type of service Initial Visit Follow-up Visit (Physician/PATIENT RELATIONS LIAISON ) Arrival Mode Wheelchair Wheelchair Transfer Assistance None Other Transfer Assist (Other) 2 Accompanied by and son AND SON Patient Identification Verified (Name & Yes Yes ) Patient Requires Transmission-Based No Precautions Height and Weight Height 5 ft 6 in Weight 155 lb Weight in Pounds 155.0 lbs Weight Measurement Method Estimated by Patient Body Mass Index (BMI) 25.0 25.0 BMI Classification Overweight Overweight Vital Signs Temperature (97.8 F-99.1 F) 97.2 F L 98.3 F Temperature Source Temporal Temporal Pulse Rate (60-100) 77 78 Pulse Location Monitor Monitor Respiratory Rate (12-18) 16 16 Respiratory rate source Observation Observation Oxygen Delivery Method Room Air Room Air Blood Pressure (90/60-120/80) 145/73 H 135/67 H Blood Pressure Mean (mm Hg) 97 89 Source Monitor Monitor Position Sitting Sitting Blood Pressure Location Right Arm Right Arm History Since Last Visit- (Skip if this is Patient's initial visit) Have you changed medications since your No last visit? Any new allergies or adverse reactions No Had a fall/change in ADL's that may No increase risk of falls Signs or symptoms of abuse and/or No neglect since last visit Have you been in the hospital since your Yes last visit? Has dressing in place as prescribed Yes Experienced any changes in pain level or No management Left Footwear Regular Shoe Regular Shoe Right Footwear Regular Shoe Regular Shoe Pain Scale: 0-10 Numeric Is Patient Pain Free? Yes No RLE WOUNDS -Description Aching -Intensity 5 -Duration (hours) Acute -Pain Behavior No Change in Behavior -Alleviating Factors/Interventions Turning/ Repositioning, Distraction, Will continue to monitor, Patient denies need for intervention, Emotional Support -Comments PRE MEDICATED W / OXY PRIOR TO VISIT Communication Assessment Preferred language Sammarinese Able to Read Yes Able to Write Yes Communication Tools None Right Hearing Abillity Normal Left Hearing Abillity Normal Visual Assistive Devices Glasses Teaching Assessment Preferences Verbal,Written, Audio/Visual, Demonstration Barriers to Learning None Readiness To Learn Excellent Willingness to Engage in Self Management High Activies Readiness to Engage in Self Management High Activities Anxiety Level Calm Cooperation Cooperative Perception Coherent Interest in Health Problem Asks Questions Education Importance Acknowledges Need Does Patient Smoke tobacco or other No substances Smoking Status Current every day smoker Is Patient Diabetic No Functional Assessment Recent Decline in Ability to Perform Ambulation, Lower Body Dressing, Transferring Culture/Zoroastrianism/Dental Surgeon Cultural/Zoroastrianism Needs that may affect No Treatment Plan Teaching: Wound Center *Welcome to the Wound Center -Person Taught Patient,Family -Teaching Method Discussion -Response to teaching Verbalize Understanding WC - Nurse 1 - General Ulcer Measurement Start: 07/26/24 09:00 Freq: Status: Active Protocol: Activity Type Activity Date Activity User E-sign Co-sign Detail Recorded Client Recorded Date Recorded By Document 07/26/24 09:00 [facility] [id number] 07/26/24 09:16 [facility] Document 08/02/24 09:06 [facility] [id number] 08/02/24 09:13 [facility] 07/26/24 08/02/24 09:00 09:06 Wound Center Nurse 1 #2 RLE MEDIAL -Combined with other wound No -Current Size (cm) - Length 16.2 0.1 -Current Size (cm) - Width 2.9 0.1 -Current Size (cm) - Depth 1.1 0.1 -Total Square Cm 46.98 0.01 -Date of Last Picture (Recall this 08/02/24 field) -Photo Taken Yes Yes -Epithelialization Medium 34-66% -Exudate Amt Medium -Exudate Type Serosanguineous -Wound Margin Distinct, Outline Attached -Granulation Amt Medium (34-66%) -Necrosis Amt Medium (34-66%) -Texture (Roslyn-wound Skin Appearance) Assessed -Moisture (Roslyn-wound Skin Appearance) No Abnormality -Color (Roslyn-wound Skin Appearance) Assessed -Temperature (Roslyn-wound Skin No Abnormality Appearance) (Pt Warm) -Ulcer Cleansing Soap and Water -Foul Odor after Cleansing No -Anesthetic Used 4% Lidocaine Solution -Wound Comment(s) SURGICAL CLOSURE, [place] ON ARRIVAL #1 RLE LATERAL -Combined with other wound No -Current Size (cm) - Length 16 0.1 -Current Size (cm) - Width 3.5 0.1 -Current Size (cm) - Depth 108 0.1 -Total Square Cm 56.0 0.01 -Date of Last Picture (Recall this 08/02/24 field) -Photo Taken Yes -Epithelialization Medium 34-66% -Undermining/Tunneling Yes -Undermining/Tunneling Starts (O'clock 6 ) -Undermining/Tunneling Ends (O'clock) 11 -Maximum Distance (cm) 0.7 -Necrosis Amt Medium (34-66%) -Structure Exposed Tendon -Texture (Roslyn-wound Skin Appearance) Assessed -Moisture (Roslyn-wound Skin Appearance) Assessed -Color (Roslyn-wound Skin Appearance) Assessed -Temperature ([place]lyn-wound Skin No Abnormality Appearance) (Pt Warm) -Ulcer Cleansing Soap and Water -Foul Odor after Cleansing No -Anesthetic Used 4% Lidocaine Solution -Wound Comment(s) SURGICAL CLOSURE, WILLY ON ARRIVAL Right Calf (cm) 32.7 Right Ankle (cm) 19.5 WC - Nurse 2 - General Ulcer CM Notes Start: 07/26/24 09:00 Freq: Status: Active Protocol: Activity Type Activity Date Activity User E-sign Co-sign Detail Recorded Client Recorded Date Recorded By Document 07/26/24 09:31 [facility] [id number] 07/26/24 09:32 Document 08/02/24 09:28 [facility] [id number] 08/02/24 09:30 07/26/24 08/02/24 09:31 09:28 Wound Center Nurse 2 #2 RLE MEDIAL -Correct Patient No No -Correct Side, Site, Position No No -Correct Procedure No No -Procedure Performed No No -Post Debridement (cm) - Length 0 -Post Debridement (cm) - Width 0 -Post Debridement (cm) - Depth 0 -Total Square (Post) (cm) 0 -Area of Debridement (cm) - Length 0 -Area of Debridement (cm) - Width 0 -Total Square (Area) (cm) 0 -Wound/Ulcer Outcome Not Healed Healed- Surgical Closure #1 RLE LATERAL -Correct Patient No No -Correct Side, Site, Position No No -Correct Procedure No No -Procedure Performed No No -Post Debridement (cm) - Length 0 -Post Debridement (cm) - Width 0 -Post Debridement (cm) - Depth 0 -Total Square (Post) (cm) 0 -Area of Debridement (cm) - Length 0 -Area of Debridement (cm) - Width 0 -Total Square (Area) (cm) 0 -Wound/Ulcer Outcome Not Healed Healed- Surgical Closure Pain Scale: 0-10 Numeric Is Patient Pain Free? Yes Yes - Nurse 3 - General Ulcer D/C NN Start: 07/26/24 09:00 Freq: Status: Active Protocol: Activity Type Activity Date Activity User E-sign Co-sign Detail Recorded Client Recorded Date Recorded By Document 07/26/24 09:47 BM[facility] [id number] 07/26/24 09:49 BMF Edit Result 07/26/24 09:47 BMF (1) [id number] 07/28/24 07:38 BMF Document 08/02/24 09:36 JF [id number] 08/02/24 09:37 JF (1) #2 RLE MEDIAL - NPWT Application Charge NPWT > 50 sq cm ( => NPWT </= 50 sq cm disp) ($) => ($) 07/26/24 08/02/24 09:47 09:36 Wound Care Center Nurse 3 #2 RLE MEDIAL -Ulcer Cleansing Soap and Water -Foul Odor after Cleansing No -Negative Pressure Wound Therapy Continue -Pieces of White Foam Inserted 125 -Pieces of Black Foam Inserted 1 -NPWT Application Charge NPWT </= 50 sq cm ($) -Negative Pressure is Continuous -Wound Comment(s) PER DL DEMAND PLANNING ANALYST #1 RLE LATERAL -Ulcer Cleansing Soap and Water -Foul Odor after Cleansing No -Negative Pressure Wound Therapy Continue -Pieces of White Foam Inserted 125 -Pieces of Black Foam Inserted 1 -NPWT Application Charge NPWT - Multiple Locations -Negative Pressure is Continuous -Wound Comment(s) PER DL DEMAND PLANNING ANALYST Treatment Response Procedure Tolerated Well Pain Scale: 0-10 Numeric Is Patient Pain Free? Yes Yes WC - Visit Discharge Discharge Condition Stable Stable Ambulatory Status Wheelchair Ambulatory, Wheelchair Transportation Private Auto Private Auto Accompanied by AND SON AND SON Medication Reconcilliation completed & Yes provided to patient/care provider Clinical Summary of Care Provided Yes Assessment/Plan Assessment/Plan (1) Leg wound, right: CODE(S): S81.801A - Unspecified open wound, right lower leg, initial encounter PLAN: Healing well. Expected course. OK for Benadryl from [facility] standpoint F/u in 1 week for wound check OK to trim the Prineo tape as needed.
--- NOTE | 2024-08-02 14:37 | WC ---
PHOTO 08/02/24 RIGHT LATERAL LE
--- NOTE | 2024-08-02 14:40 | WC ---
PHOTO 08/02/24 RIGHT [facility]
== END 2024-08-09 16:47 | disposition home or self-care (01) ==
LOC: WC 09:15
PROVIDERS: PCP Family Medicine; Referring Provider Surgery Plastic and Reconstructive Surgery; Visit Provider Surgery Plastic and Reconstructive Surgery
DX: S81.801A Unspecified open wound, right lower leg, initial encounter (principal); M79.673 Pain in unspecified foot; Z79.01 Long term (current) use of anticoagulants; E78.5 Hyperlipidemia, unspecified; Z79.82 Long term (current) use of aspirin; Z86.718 Personal history of other venous thrombosis and embolism; F17.210 Nicotine dependence, cigarettes, uncomplicated
CPT/HCPCS: 97608; 97605; 99213; 99214; G0463

== ENCOUNTER → 2024-09-21 | Outpatient (CLI) | payer MEDICAID, SELFPAY ==
--- NOTE | 2024-09-21 11:00 | ART_ITS ---
Reason For Study Reason For Study: PVD Procedure A bilateral lower extremity continuous wave Doppler with analog waveform analysis,segmental pressures,and ankle brachial indexes without exercise. Left Segmental Pressures Left brachial= 140mmHg. Left posterior tibial artery = 167mmHg. Left dorsalis pedis artery = 146mmHg. Left digit = 98 mmHg. The left dorsalis pedis waveforms are triphasic. The left posterior tibial artery waveforms are triphasic. Right Segmental Pressures Right brachial= 141mmHg. Right posterior tibial artery = 168mmHg. Right dorsalis pedis artery = 147mmHg. Right digit = 128 mmHg. The right dorsalis pedis waveforms are triphasic. The right posterior tibial artery waveforms are triphasic. Indices The right ankle brachial index by the dorsalis pedis is 1.04. The right ankle brachial index by the posterior tibial artery is 1.19. The right digital-brachial index is 0.91. The left ankle brachial index by the dorsalis pedis is 1.04. The left ankle brachial index by the posterior tibial artery is 1.18. The left post exercise ankle brachial index is 0.70. VL/Lower Ext Art Exam w/o Exercis Interpretation Summary Right TITI 1.19, normal. TBI and Doppler/PVR waveforms of the right leg normal a t rest. Left TITI 1.18, normal. Doppler/PVR waveforms of the left leg normal at rest. TB I diminished, pedal/digit disease vs spasm Ordering Physician: Yadi Galvez Referring Physician: Rigo Burns Performed By: Samia Trevizo RVT
== END | disposition home or self-care (01) ==
LOC: CVS 10:52
PROVIDERS: PCP Family Medicine; Referring Provider Physician Assistant; Visit Provider Physician Assistant
DX: I74.3 Embolism and thrombosis of arteries of the lower extremities (principal); I70.201 Unspecified atherosclerosis of native arteries of extremities, right leg
CPT/HCPCS: 93923

== ENCOUNTER → 2024-09-30 | Outpatient (CLI) | payer MEDICAID, SELFPAY ==
--- NOTE | 2024-09-30 13:41 | ADUL_ITS ---
Reason For Study Reason For Study: S/P Fem Endart, R groin swelling/lump Right Velocities Ext. Iliac Artery, dist = 167.1 cm./sec. PRIMARY SPECIAL EDUCATOR, 1.16x1.10 cm, 122.1 cm/s. SFA, 0.76x0.71 cm, 57.2 cm/s. CFV and SFV are compressible, normal phasic flow. No pseudoaneurysm or AVM noted. Preliminary given to SPIKE Laurent. Procedure Exam performed in department. VL/US Art Duplex Unilat Lower Ext Interpretation Summary Patent right femoral vessels with no pseudoaneurysm, or fistula identified. Ordering Physician: Yadi Galvez Referring Physician: Rigo Burns Performed By: Christina Milian RVT
== END | disposition home or self-care (01) ==
LOC: CVS 13:35
PROVIDERS: PCP Family Medicine; Referring Provider Physician Assistant; Visit Provider Physician Assistant
DX: I73.9 Peripheral vascular disease, unspecified (principal)
CPT/HCPCS: 93926

== ENCOUNTER → 2024-11-24 | Outpatient (CLI) | payer MEDICAID, SELFPAY ==
--- NOTE | 2024-11-24 13:00 | RAD_ITS ---
EXAM: XR Right Knee Complete, 4 or More Views CLINICAL INDICATION: PAIN TECHNIQUE: Four or more views of the right knee. COMPARISON: No relevant prior studies available. FINDINGS: BONES/JOINTS: Mild tricompartmental degenerative changes. No acute fracture. No dislocation. SOFT TISSUES: Unremarkable. RAD/Knee 4 or More Views IMPRESSION: Degenerative changes as above. [facility]
--- NOTE | 2024-11-24 13:00 | RAD_ITS ---
EXAM: XR Right Knee Complete, 4 or More Views CLINICAL INDICATION: PAIN TECHNIQUE: Four or more views of the right knee. COMPARISON: No relevant prior studies available. FINDINGS: BONES/JOINTS: Mild tricompartmental degenerative changes. No acute fracture. No dislocation. SOFT TISSUES: Unremarkable. RAD/Knee 4 or More Views IMPRESSION: Degenerative changes as above. [facility]
--- NOTE | 2024-11-24 13:00 | RAD_ITS ---
EXAM: XR Left Knee Complete, 4 or More Views CLINICAL INDICATION: PAIN TECHNIQUE: Four or more views of the left knee. COMPARISON: No relevant prior studies available. FINDINGS: BONES/JOINTS: Unremarkable. No acute fracture. No dislocation. SOFT TISSUES: Unremarkable. RAD/Knee 4 or More Views IMPRESSION: No acute fracture. Reading [facility]
--- NOTE | 2024-11-24 13:00 | RAD_ITS ---
EXAM: XR Left Knee Complete, 4 or More Views CLINICAL INDICATION: PAIN TECHNIQUE: Four or more views of the left knee. COMPARISON: No relevant prior studies available. FINDINGS: BONES/JOINTS: Unremarkable. No acute fracture. No dislocation. SOFT TISSUES: Unremarkable. RAD/Knee 4 or More Views IMPRESSION: No acute fracture. Reading [facility]
[2024-11-24 15:12] LABS: Hematocrit 44.3 % (37-47); Hemoglobin 14.6 g/dL (12.0-15.0); Immature Granulocytes Count 0.020 X10^3/uL (0.0-0.0); Mean Corp Hgb Conc 33.0 g/dL (32-36); Mean Corpuscular Volume 93.5 fL (81-99); Mean Platelet Vol. 11.7 fl (6.2-12.0); NRBC Flagged by Analyzer 0 % (0-5); Platelet Count 232 K/mm3 (150-450); RBC Distribution Width CV 12.8 % (11.6-14.6); RBC Distribution Width SD 43.9 fl (35.1-43.9); Red Blood Count 4.74 M/mm3 (4.2-5.4); White Blood Count 8.1 K/mm3 (4.4-11.0)
[2024-11-24 15:52] LABS: AST(SGOT) 25 U/L (<=31); Alanine Aminotransfer ALT/SGPT 19 U/L (<=34); Albumin, Serum 4.7 g/dL (3.4-4.8); Alkaline Phosphatase 72 U/L (35-104); Anion Gap 13 (5-15); BUN 13 mg/dL (4-19); BUN/Creat Ratio 17.2 RATIO (10-20); Calcium,Total 9.8 mg/dL (7.6-11.0); Carbon Dioxide 22.9 mmol/L (21.0-32.0); Chloride 104 mmol/L (98-108); Cholesterol 187 mg/dL (<=200); Globulin 3.3 g/dL (2.2-4.2); Glucose 86 mg/dL (70-99); Low Density Lipoprotein Calc. 49 mg/dL; Potassium 4.5 mmol/L (3.3-5.1); Triglycerides 236 mg/dL; Very Low Density Lipoprotein 47 mg/dL (5-40); cholesterol:hdl ratio screen 2.05
== END | disposition home or self-care (01) ==
LOC: MFPLAB 12:00 → RAD 12:51 → MTRAD 13:58
PROVIDERS: PCP Family Medicine; Referring Provider Family Medicine; Visit Provider Family Medicine
DX: M25.561 Pain in right knee (principal); M25.562 Pain in left knee; E78.5 Hyperlipidemia, unspecified
CPT/HCPCS: 36415; 73564; 80053; 80061; 85025

== ENCOUNTER → 2025-03-15 | Outpatient (CLI) | payer MEDICAID, SELFPAY ==
--- NOTE | 2025-03-15 14:50 | ART_ITS ---
Reason For Study Reason For Study: PVD / S/P RLE Endart / Thrombectomy Procedure A bilateral lower extremity continuous wave Doppler with analog waveform analysis,segmental pressures,and ankle brachial indexes with exercise. Left Segmental Pressures Left brachial= 138mmHg. Left posterior tibial artery = 178mmHg. Left dorsalis pedis artery = 149mmHg. Left digit = 128 mmHg. The left posterior tibial artery waveforms are triphasic. The left dorsalis pedis waveforms are triphasic. Right Segmental Pressures Right brachial= 156mmHg. Right posterior tibial artery = 176mmHg. Right dorsalis pedis artery = 164mmHg. Right digit = 131 mmHg. The right posterior tibial artery waveforms are triphasic. The right dorsalis pedis waveforms are triphasic. Indices The right ankle brachial index by the posterior tibial artery is 1.13. The right ankle brachial index by the dorsalis pedis is 1.05. The right digital-brachial index is 0.84. The right post exercise ankle brachial index is 1.21. The left ankle brachial index by the posterior tibial artery is 1.14. The left ankle brachial index by the dorsalis pedis is 0.96. The left digital-brachial index is 0.82. The left post exercise ankle brachial index is 1.20. VL/Lower Ext Art Exam w/ Exercise Interpretation Summary Right TITI 1.13, normal. TBI and Doppler/PVR waveforms of the right leg normal a t rest. Right lower extremity exhibits normal response to exercise. Left TITI 1.14, normal. TBI and Doppler/PVR waveforms of the left leg normal at rest. Left lower extremity exhibits normal response to exercise. Ordering Physician: Yadi Galvez Referring Physician: Rigo Burns Performed By: Chris Perera RVT and Student
== END | disposition home or self-care (01) ==
LOC: CVS 14:47
PROVIDERS: PCP Family Medicine; Referring Provider Physician Assistant; Visit Provider Physician Assistant
DX: I73.9 Peripheral vascular disease, unspecified (principal); Z98.890 Other specified postprocedural states
CPT/HCPCS: 93924